=== PATIENT | female | born 1970 | race Caucasian/White ===

== ENCOUNTER 2023-12-16 23:59 | Emergency (ER) | payer BC, SELFPAY ==
[2023-12-17] VITALS (18 sets, daily range): BP systolic 125–181; BP diastolic 71–87; PULSE 60–76; RESP 12–24; TEMP 36.4–37.1; O2SAT 95–100
--- NOTE | 2023-12-17 02:36 | ED.GENADULT ---
HPI - General Adult General Chief complaint: Unspecified Stated complaint: My blood pressure is 170/100 Time Seen by Provider: 12/17/23 01:21 History of Present Illness HPI narrative: This is a 53-year-old female who is 3 weeks for having a cancerous thyroid nodule removed here for multiple complaints. the patient has been healthy until her thyroid cancer diagnosis and now has a significant amount of concerned about her health. Her 1st complaint was her blood pressure. She has been monitoring her blood Pressure every night before bed. It is typically 140/80 but tonight it was 180/90. She called her primary care physician was told to come to the emergency department. She does not have any chest pain difficulty breathing or neurologic deficits. The patient's 2nd complaint is neck stiffness. Since the surgery to her neck she feels that she has been holding head much straighter and having difficulty sleeping at night. The stiffness in her neck has caused her to have a bandlike headache. Additionally she is complaining of intermittent pain pins and needles in a T8 distribution down her left arm. Related Data Home Medications Medication Instructions Recorded Confirmed levothyroxine 125 mcg tablet mcg 12/17/23 Allergies Allergy/AdvReac Type Severity Reaction Status Date / Time No Known Allergies Allergy Verified 12/17/23 00:50 Exam Narrative: APPEARANCE: Patient appears anxious Head: atraumatic. EYES: EOMI, NOSE: Atraumatic NECK: no midline tenderness, tension in the paracervical muscles and trapezius , well-healed scar over the base of neck RESPIRATORY: No increased rate of breathing clear to auscultation CARDIOVASCULAR: RRR, ABDOMINAL: Non-distended MUSCULOSKELETAl: No obvious deformities NEURO: Alert. focal exam of left upper extremity shows intact sensation light touch and motor function. Pulses intact cap refill less than 2 seconds. SKIN:: Warm, dry. Normal color PSYCHIATRIC: anxious Course Vital Signs Vital signs: Vital Signs Temperature 97.6 F 12/17/23 00:00 Pulse Rate 65 12/17/23 00:00 Respiratory Rate 16 12/17/23 00:00 Blood Pressure 181/71 H 12/17/23 00:00 Pulse Oximetry 98 12/17/23 00:00 Oxygen Delivery Room Air 12/17/23 00:00 Temperature 97.6 F 12/17/23 00:00 Pulse Rate 76 12/17/23 02:07 Respiratory Rate 18 12/17/23 02:07 Blood Pressure 140/77 08/18/24 01:46 Pulse Oximetry 97 12/17/23 02:07 Oxygen Delivery Room Air 12/17/23 00:00 Medical Decision Making MDM Narrative Medical decision making narrative: -Course: 53-year-old female presenting with multiple complaints related to her recent surgery. Patient admits that she has a certain amount of health anxiety after her recent diagnosis. Patient has multiple common complaints such as a tension headache and some cervical radiculopathy which are likely related to her recent neck surgery and resulting neck pain. Symptoms were discussed with the patient and she is comfortable following up with her primary care physician. Patient will be given muscle relaxers for her neck tension. -DDX includes but is not limited to: Tension headache, cervical strain, cervical radiculopathy -Co-morbidities complicating care: recent partialthyroidectomy -Interventions: Robaxin -Shared decision making / Disposition: discharge -RX Robaxin Vital Signs Vital Signs: Vital Signs Temperature 97.6 F 12/17/23 00:00 Pulse Rate 65 12/17/23 00:00 Respiratory Rate 16 12/17/23 00:00 Blood Pressure 181/71 H 12/17/23 00:00 Pulse Oximetry 98 12/17/23 00:00 Oxygen Delivery Room Air 12/17/23 00:00 Temperature 97.6 F 12/17/23 00:00 Pulse Rate 76 12/17/23 02:07 Respiratory Rate 18 12/17/23 02:07 Blood Pressure 140/77 12/17/23 01:46 Pulse Oximetry 97 12/17/23 02:07 Oxygen Delivery Room Air 12/17/23 00:00 Discharge Plan Discharge Clinical Impression: Acute tension
== END 2023-12-17 03:13 | disposition home or self-care (01) ==
PROVIDERS: Emergency Provider Emergency Medicine; PCP Nurse Practitioner Family
DX: G44.209 Tension-type headache, unspecified, not intractable (principal); M54.12 Radiculopathy, cervical region; S16.1XXA Strain of muscle, fascia and tendon at neck level, initial encounter; C73 Malignant neoplasm of thyroid gland; X58.XXXA Exposure to other specified factors, initial encounter
CPT/HCPCS: 99284

== ENCOUNTER 2025-02-27 09:11 | Emergency (ER) | payer BC, SELFPAY ==
--- NOTE | ~2025-02-27 | US_ITS ---
EXAMINATION: US venous doppler [facility] DATE: 02/27/2025 10:05 INDICATION: Left lower limb pain TECHNIQUE: Grayscale ultrasound images without and with compression and Doppler ultrasound images of the left lower extremity veins were obtained. COMPARISON: None. FINDINGS: The visualized portions of left common femoral vein, profunda (deep) femoral vein, femoral vein, popliteal vein, peroneal veins, posterior tibial veins, gastrocnemius vein and greater saphenous vein outflow are patent. IMPRESSION: 1. No deep venous thrombosis in the left lower limb. Reviewed, dictated and finalized at location A.
[2025-02-27 09:27] VITALS: BP 157/88; PULSE 66; RESP 16; TEMP 37.1; O2SAT 100
--- OUTSIDE RECORDS SUMMARY | 2025-02-27 09:45 | XMS_ITS | Clinical Summary ---
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 Gender Identity Not on file Sexual Orientation Not on file Plan of Treatment Health Maintenance Due Date Last Done Comments Hepatitis C Virus (HCV) Screening 1970 TdaP Immunization 1969 Hepatitis B Immunization (1 of 3 - 19+ 3-dose series) 1988 Pap Smear 1990 Cervical Cancer Screening (CCS) 1999 HPV/Cotest 1999 Cologuard 2014 Colonoscopy 2014 Colorectal Cancer Screening 2014 Immunochemical Fecal Occult Blood 2014 Pneumococcal Immunization (5 0+ years) (1 of 1 - PCV) 2019 Zoster Immunization (1 of 2) 2019 Influenza Immunization (#1) 2024 04/05/2014 SARS-COV-2 Immunization (2 - season) 2024 07/05/2020 Respiratory Syncytial Virus (RSV) Immunization (Adult) (1 - 1-dose 75+ series) 2044 Human Papillomavirus (HPV) Immunization Aged Out No longer eligible b ased on patient's age to complete this topic Meningococcal Immunization (ACWY) Aged Out No longer eligible based on patient's age to complete this topic Rotavirus Immunization Aged Out No lo nger eligible based on patient's age to complete this topic
--- OUTSIDE RECORDS SUMMARY | 2025-02-27 09:45 | XMS_ITS | Clinical Summary ---
Author Organization [facility] Address [address] [place] [address] Care Team Providers Care Oil Tester Name Role Phone Azalia Wilson MD Primary Care Provider [phone] Source Comments [facility],non-owned Affiliates and Associated Physician Practices is amultiple site organization consisting of ambulatory clinics and hospital sitesin [place], [place], [place] and [place]. This disclosure is being madepursuant to the Care Everywhere program and may not contain all information available regarding this patient. Last updated 18.[facility] Allergies No known active allergies Medications * Be aware that medications may not be up to date on this document. Alwaysverify current medications with the patient. Naproxen Sodium 220 MG Take 1 tablet by mouth. 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 Gender Identity Female 12/21/2022 5:22 PM CDT Sexual Orientation Straight 12/21/2022 5: 22 PM CDT Last Filed Vital Signs Vital Sign Reading Time Taken Comments Blood Pressure 125/73 01/05/2023 10:45 AM CDT Pulse 62 01/05/2023 10:45 AM CDT Temperature 36.6 C (97.8 F) 01/05/2023 10:30 AM CDT Respiratory Rate 11 01/05/2023 10:45 AM CDT Oxygen Saturation 97% 01/05/2023 10:45 AM CDT Inhaled Oxygen Concentration - - Weight 86.2 kg (190 lb) 01/05/2023 8:40 AM CDT Height 172.7 cm (5' 8) 01/05/2023 8:40 AM CDT Body Mass Index 28.89 01/05/2023 8:40 AM CDT Plan of Treatment Health Maintenance Due Date Last Done Comments COLOGUARD (AGES 45-75) - COL ON CA SCREENING 1969 CT COLONOGRAPHY - COLON CA SCREENING 1969 FIT - COLON CA SCREENING 1969 FLEX SIG - COLON CA SCREENING 1969 LIPID TESTING 1969 MAMMOGRAM 1969 HIV SCREENING 1984 HEPATITIS C SCREENING 03/21/1987 DTAP/TDAP/TD VACCINES (1 - Tdap) 1988 HEPATITIS B VACCINE (1 of 3 - 19+ 3-dose series) 1988 PAP SMEAR 1990 PNEUMOCOCCAL VACCINE 50+ (1 of 1 - PCV) 2019 ZOSTER VACCINE (1 of 2) 2019 DEPRESSION SCREENING 05/01/2024 COVID-19 VACCINE (1 - 2023-2 5 season) 2024 INFLUENZA VACCINE (#1) 2024 4, 04/05/2014, 05/01/2012 COLON MONITORING 01/05/2033 01/05/2023, 01/05/2023 COLONOSCOPY - COLON CA SCREENING 01/05/2033 01/05/2023, 01/05/2023 Colorectal Cancer Screening 01/05/2033 HIB VACCINE Aged Out No longer eligi ble based on patient's age to complete this topic HPV VACCINE Aged Out No longer eligi ble based on patient's age to complete this topic MENINGOCOCCAL (Group B) VACCINE SHARED DECISION-MAKING Aged Out No longer eligible based on patient's age to complete this topic MENINGOCOCCAL GROUPS A/C/Y/W VACCINE Aged Out No longer eligible b ased on patient's age to complete this topic Procedures Procedure Name Priority Date/Time Associated Diagnosis Comments ENDOSCOPY, COLON, SCREENING Routine 01/05/2023 9:51 AM CDT from Last 3 Months or Most Recently Relevant to Health Maintenance Results * ENDOSCOPY, COLON, SCREENING (01/05/2023 9:51 AM CDT) Report Endoscopy POC Endoscopy Department Report _ Patient Name: Gabrielle Hayward Procedure Date: 01/05/2023 9:51 AM Date of : 1970 Classification: Outpatient Gender: Female Ethnicity: Not or Race: White _ Providers: Prashant Hitchcock Referring MD: Azalia Wilson (Referring MD) Procedure: Colonoscopy Indications: Screening for colorectal malignant neoplasm Medications: Monitored Anesthesia Care Description of Procedure: After I obtained informed consent, the scope was passed under direct vision. Throughout the procedure, the patient's blood pressure, pulse, and oxygen saturations were monitored continuously. The Colonoscope was introduced through the anus and advanced to the cecum, identified by appendiceal orifice and ileocecal valve. The colonoscopy was performed without difficulty. The patient tolerated the procedure well. The quality of the bowel preparation was good. The ileocecal valve, appendiceal orifice, and rectum were photographed. Findings: Non-bleeding external and internal hemorrhoids were found. The hemorrhoids were large. A 3 mm polyp was found in the hepatic flexure. The polyp was hyperplastic. The polyp was removed with a jumbo cold forceps. Resection and retrieval were complete. Many small and large-mouthed diverticula were found in the entire colon. Estimated Blood Loss: Estimated blood loss: none. Complications: No immediate complications. Impression: - Non-bleeding external and internal hemorrhoids. - One 3 mm polyp at the hepatic flexure, removed with a jumbo cold forceps. Resected and retrieved. - Diverticulosis in the entire examined colon. Recommendation: - Discharge patient to home. - Await pathology results. - Repeat colonoscopy in 10 years for screening purposes. Attending Participation: I personally performed the entire procedure. Procedure Code(s): --- Professional --- 26429, Colonoscopy, flexible; with biopsy, single or multiple Diagnosis Code(s): --- Professional --- Z12.11, Encounter for screening for malignant neoplasm of colon K64.8, Other hemorrhoids D12.3, Benign neoplasm of transverse colon (hepatic flexure or splenic flexure) K57.30, Diverticulosis of large intestine without perforation or abscess without bleeding CPT copyright 2021 [employer]. All rights reserved. The codes documented in this report are preliminary and upon label coder review may be revised to meet current compliance requirements. Prashant Hitchcock, 01/05/2023 10:25:53 AM Note Initiated On: 01/05/2023 9:51 AM Number of Addenda: [address] [id number] [facility] 01/05/2023 9:51 AM CDT us Prashant Hitchcock MD GI PROCEDURE ORDERABLE S Edited Result - Final [facility] from Last 3 Months or Most Recently Relevant to Health [place] [address] [employer] Care Teams Oil Tester Relationship Specialty Start Date End Date Azalia Wilson MD [address] [facility] [address] [place] [address] PCP - General Obstetrics and Gynecology 12/21/22
--- OUTSIDE RECORDS SUMMARY | 2025-02-27 09:45 | XMS_ITS | Encounter Summary ---
Author Organization [facility] Healthcare Address [address] [place] [address] Care Team Providers Care Dump Worker Name Role Phone Azalia Wilson MD Unavailable Marla Aldrich MD Primary Care Provider Encounter Details Date Type Department Care Team (Late st Contact Info) Description 01/13/2025 Results Follow-Up [facility] [address] [place] [address] [place] [phone] Azalia Wilson MD [address] [place] [address] [address] [place] [address] [place] Transvaginal Social History Tobacco Use Types Packs/Day Years Used Date Smoking Tobacco: Former Cigarettes 0.1 4 Smokeless Tobacco: Never Alcohol Use Standard Drinks/Week Comments Yes 3 (1 standard drink = 0.6 oz pur e alcohol) [facility] Utilities Answer Date Recorded In the past 12 months has e Nerv[employer], gas, oil, or water [employer] threatened to shut off services in your home? No 03/07/2024 Humiliation, Afraid, Rape, and Kick questionnair e Answer Date Recorded Within the last year, have y ou been afraid of your partner or ex-partner? No 06/23/2020 Within the last year, have y ou been humiliated or emotionally abused in other ways by your partner or ex-partner? No Within the last year, have y ou been kicked, hit, slapped, or otherwise physically hurt by your partner or ex-partner? No 06/23/2020 Within the last year, have y ou been raped or forced to have any kind of sexual activity by your partner or ex-partner? No 06/23/2020 Social Connection and Isolation Panel Answer Date Recorded In a typical week, how many times do you talk on the phone with family, friends, or neighbors? More than three times a week 03/07/2024 How often do you get togethe r with friends or relatives? More than three times a week 03/07/2024 How often do you attend chur ch or shinto services? Never 03/07/2024 Do you belong to any clubs o r organizations such as holiness groups, unions, fraternal or athletic groups, or school groups? No 03/07/2024 How often do you attend meet ings of the clubs or organizations you belong to? Never 03/07/2024 Are you , , di vorced, , never , or living with a partner? 03/07/2024 AUDIT-C Answer Date Recorded Q1: How often do you have a drink containing alc ohol? 2-4 times a month 11/24/2023 Q2: How many drinks containi ng alcohol do you have on a typical day when you are drinking? 3 or 4 11/24/2023 Q3: How often do you have si x or more drinks on one occasion? Never 11/24/2023 Overall Financial Resource Strain (CARDIA) Answe r Date Recorded How hard is it for you to pa y for the very basics like food, housing, medical care, and heating? Not hard at all 03/07/2024 PHQ-2 Answer Date Recorded PHQ-2 Total Score (If total score is 3 or more points, staff should administer the PHQ-9) 0 09/13/2024 Hunger Vital Sign Answer Date Recorded Within the past 12 months, y ou worried that your food would run out before you got the money to buy more. Never true 03/07/20 24 Within the past 12 months, t he food you bought just didn't last and you didn't have money to get more. Never true 03/07/2024 PRAPARE - Transportation Answer Date Re corded In the past 12 months, has l ack of transportation kept you from medical appointments or from getting medications? No 10/2023 In the past 12 months, has l ack of transportation kept you from meetings, work, or from getting things needed for daily living? No 03/07/2024 Housing Stability Vital Sign Answer Tee e Recorded In the last 12 months, was t here a time when you were not able to pay the mortgage or rent on time? No 03/07/2024 In the past 12 months, how m any times have you moved where you were living? 0 03/07/2024 At any time in the past 12 m [facility], were you homeless or living in a group home (including now)? No 03/07/2024 Personal Safety Answer Date Recorded Have you ever been in or are you currently in a harmful physical or emotional relationship or is someone making you feel afraid or unsafe? 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 Gender Identity Female 04/16/2020 8:10 PM DAY TREATMENT CLINICIAN/ART THERAPIST Sexual Orientation Straight 04/16/2020 8: 10 PM DAY TREATMENT CLINICIAN/ART THERAPIST documented as of this encounter Plan of Treatment Scheduled Procedures Name Priority Associated Diagnoses Date/Ti me LAPAROSCOPIC TOTAL HYSTERECTOMY Abnormal uterine bleeding (AUB) Fibroids CYSTOSCOPY Abnormal uterine bleeding (AUB) Fibroids LAPAROSCOPIC SALPINGO-OOPHORECTOMY Abnormal uterine bleeding (AUB) Fibroids documented as of this encounter Visit Diagnoses Not on filedocumented in this encounter Care Teams Dump Worker Relationship Specialty Start Date End Date Marla Aldrich MD [address] [place] [address] [address] [facility] [address] [place] [address] PCP - General Internal Medicine 09/13/24 Azalia Wilson MD [address] [facility] [address] [place] [address] Consulting Physician Obstetrics and Gynecology 08/03/22 documented as of this encounter
--- OUTSIDE RECORDS SUMMARY | 2025-02-27 09:45 | XMS_ITS | Encounter Summary ---
Author Organization [facility] Healthcare Address [address] [place] [address] Care Team Providers Care Director Of Provider Relations Name Role Phone Azalia Wilson MD Unavailable [phone] Marla Aldrich MD Primary Care Provider Reason for Visit * Reason Onset Date Comments Medical Question/Miscellaneous 02/21/2025 Encounter Details Date Type Department Care Team (Late st Contact Info) Description 02/21/2025 Telephone [facility] at the [address] [place] [address] Marla Aldrich MD [address] [place] [address] [address] [place] [address] Medical Question/Miscellaneous Social History Tobacco Use Types Packs/Day Years Used Date Smoking Tobacco: Former Cigarettes 0.1 4 Smokeless Tobacco: Never Alcohol Use Standard Drinks/Week Comments Yes 3 (1 standard drink = 0.6 oz pur e alcohol) [facility] Utilities Answer Date Recorded In the past 12 months has e electric, gas, oil, or water company threatened to shut off services in your [...] often do you attend chur ch or yazidi services? Never 03/07/2024 Do you belong to any clubs o r organizations such as oriental orthodox groups, unions, fraternal or athletic groups, or [...] any time in the past 12 m [facility], were you homeless or living in a assisted (including now)? No 03/07/2024 Personal Safety Answer Date Recorded Have you ever been in or are you currently in a harmful physical or emotional relationship or is someone making you feel afraid or unsafe? 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 Collection was not enough for testing FYI Please advise further? Does message need to be routed? Yes-Action Needed documented in this encounter Plan of Treatment Scheduled Procedures Name Priority Associated Diagnoses Date/Ti me LAPAROSCOPIC TOTAL HYSTERECTOMY Abnormal uterine bleeding (AUB) Fibroids CYSTOSCOPY Abnormal uterine bleeding (AUB) Fibroids LAPAROSCOPIC SALPINGO-OOPHORECTOMY Abnormal uterine bleeding (AUB) Fibroids documented as of this encounter Visit Diagnoses Not on filedocumented in this encounter Care Teams Director Of Provider Relations Relationship Specialty Start Date End Date Marla Aldrich MD [address] [place] [address] [address] [facility] [address] [place] [address] PCP - General Internal Medicine 09/13/24 Azalia Wilson MD [address] [place] [address] Consulting Physician Obstetrics and Gynecology 08/03/22 documented as of this encounter
--- OUTSIDE RECORDS SUMMARY | 2025-02-27 09:45 | XMS_ITS | Encounter Summary ---
Author Organization [facility] Address [address] [place] [address] Care Team Providers Care Dye Tub Tender Name Role Phone Azalia Wilson MD Primary Care Provider [phone] Encounter Details Date Type Department Care Team (Late st Contact Info) Description 05/24/2024 Lab Requisition [facility] - DermPath Lab [address] [facility] [place] [id number] Mustapha Kurtz MD [address] [address] Social History Tobacco Use Types Packs/Day Years Used Date Smoking Tobacco: Never Alcohol Use Standard Drinks/Week Comments Yes 0 (1 standard drink = 0.6 oz pur e alcohol) Comments No Sex and Gender Information Value Date Recorded Sex Assigned at Female 12/21/2022 5:22 PM CDT Legal Sex Female 5:49 PM BATTERY BUILDER Gender Identity Female 12/21/2022 5:22 PM CDT Sexual Orientation Straight 12/21/2022 5: 22 PM CDT documented as of this encounter Functional Status * Is person deaf or have serious hearing difficulty? Answer Date of Assessment Author No 01/05/2023 10:35 AM CDT Katina Resendiz i, RN * Is person blind or have serious difficulty seeing? Answer Date of Assessment Author No 01/05/2023 10:35 AM GLOT Katina Resendiz i, RN * Does person have serious difficulty walking/climbing stairs? Answer Date of Assessment Author No 01/05/2023 10:35 AM Katina Polanco i, RN * Does person have difficulty dressing/bathing? Answer Date of Assessment Author No 01/05/2023 10:35 AM Katina Polanco i, RN * Does person have difficulty doing errands alone? Answer Date of Assessment Author No 01/05/2023 10:35 AM Katina Polanco i, RN documented as of this encounter Mental Status * Does person have difficulty concentrating/remembering/making decisions? Answer Entry Date Author No 01/05/2023 10:35 AM Katina Polanco i, RN documented in this encounter Plan of Treatment Not on file documented as of this encounter Procedures Procedure Name Priority Date/Time Associated Diagnosis Comments DERMATOPATHOLOGY Routine 05/23/2024 3:33 AM BATTERY BUILDER documented in this encounter Results * DERMATOPATHOLOGY (05/23/2024 3:33 AM BATTERY BUILDER) Case Report Dermatopathology Report Case: [id number] Authorizing Provider: Mustapha Kurtz MD Collected: 05/23/2024 03:33 AM Ordering Location: [facility] - Received: 05/24/2024 11:47 AM DermPath Lab Pathologist: Rani Rosa MD Specimen: Skin, left posterior knee 2:22 PM BATTERY BUILDER DERMATOPATHOLOGY LABORATORY Final Diagnosis Specimen A. 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 The specimen consists of a shave biopsy measuring 8x7x1 mm. Jar 0. 2:22 PM BATTERY BUILDER DERMATOPATHOLOGY LABORATORY Microscopic Description Specimen A. SKIN, left posterior knee: There is acanthosis of the epidermis consisting of uniform cells with pale cytoplasm, a diminished granular layer and overlying parakeratosis with neutrophils. 5 2:22 PM [facility] DERMATOPATHOLOGY LABORATORY Disclaimer An external and internal positive and negative controls are appropriate for the histochemical, immunohistochemical and immunofluorescence stain(s) in this case (if any), except where stated explicitly. The performance characteristics of the stain(s) cited in this report were developed and its performance characteristic determined by the Dermatopathology Laboratory at [facility], directed by Dr. Elmo Lloyd. These tests need not be, and therefore are not, approved by the [place] Food and Drug Administration. The tests are used for clinical purposes. Billing Codes Specimen Charges Stain Charges 52704 1 5 2:22 PM [facility] DERMATOPATHOLOGY LABORATORY Embedded Images 2:22 PM [facility] DERMATOPATHOLOGY LABORATORY Pathology/Cytolo gy TISSUE SPECIMEN FROM SKIN / Unknown 05/23/2024 3:33 AM BATTERY BUILDER 05/24/2024 11:47 AM BATTERY BUILDER Mustapha Kurtz MD LAB - PATHOLOGY/CYTOLOGY OR DERABLES Final Result DERMATOPATHOLOGY LABORATORY [facility] - Department of Dermatology [address], [address] [phone] documented in this encounter Visit Diagnoses Not on filedocumented in this encounter Care Teams Dye Tub Tender Relationship Specialty Start Date End Date Azalia Wilson MD [address] [facility] [address] [place] [address] PCP - General Obstetrics and Gynecology 12/21/22 documented as of this encounter
--- OUTSIDE RECORDS SUMMARY | 2025-02-27 09:45 | XMS_ITS ---
Author Organization [place] [id number] [facility] Address [address] [place] [address] Care Team Providers Care Boat Cleaner Name Role Phone Azalia Wilson MD Unavailable Marla Aldrich MD Primary Care Provider [phone] Active Problems Problem Noted Date Diagnosed Date Abnormal uterine bleeding (AUB) 02/25/2025 Fibroids 02/25/2025 Intramural and subserous leiomyoma of uterus Perimenopausal vasomotor symptoms 12/05/2024 Hormone replacement therapy (HRT) 12/05/2024 Elevated Lp(a) 09/13/2024 Assessment & Plan (09/13/2024 11:29 AM CDT): Extensive shared decision-making regarding benefit and risk of statin in her situation, discussed that overall the benefits of statin outweigh the risk but negative coronary CTA would be reassuring if she were against starting a statin, she wishes to continue to take time to think about it Obesity (BMI 30-39.9) 09/13/2024 Assessment & Plan (09/13/2024 11:29 AM CDT): Chronic, stable BMI Follow-up includes: nutrition counseling, exercise counseling, and education provided. Interested in GLP 1, I recommended that she touch base with her pigment pusher to make sure that her endo would be on board given prior hx papillary carcinoma of thyroid and would be happy to prescribe as long as no contraindication Multiple lung nodules on CT 08/09/2024 Myalgia 07/08/2024 History of thyroidectomy 04/19/2024 Allergic rhinitis 04/08/2024 Fibrocystic disease of breast 04/08/2024 Human papilloma virus infection 04/08/2024 Recurrent major depressive episodes 04/08/2024 Annual physical exam 04/08/2024 Assessment & Plan (04/08/2024 9:24 AM HEATER INSTALLER): -Recommended: Healthy diet. Avoiding junk food/fast food. -30 minutes of exercise most days of the week. Increase to 45 minutes for weight loss. Health Maintenance reviewed - up-to-date. -Influenza vaccine every year Recommend: - Topic Date Due DTaP/Tdap/Td Vaccine (1 - Tdap) Never done -F/u in 1 year for Annual PE or sooner if needed Acute pain of right shoulder 04/08/2024 Assessment & Plan (04/08/2024 9:29 AM HEATER INSTALLER): Still having physical pain post her thyroid surgery. Still going to physical therapy. Will obtain x-ray of her shoulder as she is still having pain into her shoulder Cervicalgia 04/08/2024 Assessment & Plan (06/10/2024 10:23 AM HEATER INSTALLER): Most of her neck symptoms are indeterminate and likely functional. She has globus sensation. A sensation of strangulation. Right neck pain and tightness. Voice seems normal. She reassures me that postop vocal cord check was done and found to be normal. She also scheduled for EGD She continues neck PT Assessment & Plan (04/08/2024 9:28 AM HEATER INSTALLER): Obtain x-ray of neck today to rule out degenerative disc disease causing the pain she is having in her scapula radiating into her shoulder and over into her right side of her neck. Submandibular gland tenderness 04/08/2024 Assessment & Plan (04/08/2024 9:31 AM HEATER INSTALLER): Tender over right submandibular gland, although I do not appreciate any swelling or enlargement. Consider ultrasound, however, she is going to the [facility] in a couple of weeks and will receive an ultrasound of her neck there. We will see what they do and then re-consider an ultrasound of that gland if needed. Generalized headaches 01/24/2024 Assessment & Plan (04/08/2024 9:26 AM HEATER INSTALLER): Most consistent with tension headaches. I gave her Maxalt to try at onset of headaches. She may continue Tylenol and Robaxin as needed. Dysphasia 01/24/2024 Family history of ischemic heart disease 024 Pulmonary hypertension 01/24/2024 Primary hypertension 12/22/2023 Assessment & Plan (02/24/2025 4:05 PM CDT): Chronic poorly controlled she does not want to make any medication changes at this time we will continue to monitor at home and we will discuss further following ambulatory blood pressure monitoring in her next office visit with me in March Assessment & Plan (09/13/2024 11:29 AM CDT): Chronic well-controlled continue amlodipine 5 telmisartan 40 Assessment & Plan (04/08/2024 9:25 AM HEATER INSTALLER): Stable. She does see Cardiology. Continue amlodipine 2.5 mg and telmisartan 40 mg Assessment & Plan (03/19/2024 2:14 PM HEATER INSTALLER): Managed appropriately by cardiology Assessment & Plan (12/26/2023 8:26 PM CDT): Blood pressure is well controlled today. She is doing well on valsartan 40mg daily. She will continue to monitor blood pressure at home and update us if blood pressures elevated above 140/90 on a regular basis. We discussed red flag signs and symptoms for which to go to the ER. We discussed cardiology referral, but patient does has not been having any chest pain, shortness of breath or any other cardiac symptoms. EKG shows NSR. Will defer for now, may consider if she has any other symptoms or concerns. ECG 12 lead Date/Time: 12/26/2023 8:23 PM Performed by: Shira Devine NP Authorized by: Devine, Shira, [employer] Comparison: not compared with previous ECG Previous ECG: no previous ECG available Rhythm: sinus rhythm Rate: normal QRS axis: normal Conduction: conduction normal ST Segments: ST segments normal Clinical impression: normal ECG Comments: Non-specific T wave abnormality Post-surgical hypothyroidism 12/04/2023 Overview (06/10/2024): Assessment & Plan (02/24/2025 4:05 PM CDT): Discussed at length the rationale behind TSH as target for levothyroxine dose monitoring, she will wait for her pigment pusher to respond to her recent query, I advised that I would not take over her levothyroxine doses at this time as a ultimately should be managed by specialist given her history. I advised that she could make an appointment to see her pigment pusher at an earlier time than the currently scheduled follow up. If ultimately her choice is to transition care to a different specialist I can of course maintain medications until that transition takes place. Gabrielle will wait and see what Dr Oswald says regarding her dosage in the meantime Assessment & Plan (12/09/2024 11:46 AM CDT): Continue current dose Assessment & Plan (06/10/2024 10:07 AM HEATER INSTALLER): Continue current dose, TSH 0.8 recently switched to Tirosent < one month ago TSH goal lower normal [ consider suppression pending final Tg and US results] Assessment & Plan (03/19/2024 2:15 PM HEATER INSTALLER): Continue current levothyroxine dose. TSH goal lower normal Assessment & Plan (12/04/2023 10:56 AM CDT): Continue current levothyroxine dose. Will check thyroid function test and adjust levothyroxine dose accordingly. TSH goal lower normal Postprocedural hypoparathyroidism 12/04/2023 Assessment & Plan (12/09/2024 11:49 AM CDT): Recovered Assessment & Plan (03/19/2024 2:15 PM HEATER INSTALLER): Recovered Assessment & Plan (12/04/2023 11:00 AM CDT): Likely mild and transient Will recheck PTH and calcium today to advise on dose and further monitoring when she returns to see surgery in 10 days Papillary carcinoma of thyroid 11/23/2023 Assessment & Plan (12/09/2024 11:47 AM CDT): Stage 1 T1N0Mx papillary thyroid cancer s/p TT 10/[address] [facility] 03/2024 US today remain stable with no concerning lesions reported Biochemical markers remain stable and at goal Plan repeat images in 1 year Assessment & Plan (06/10/2024 10:11 AM HEATER INSTALLER): Stage 1 T1N0Mx papillary thyroid cancer s/p TT 10/2023 Pending final US today Pending tumor markers US at [facility] 03/2024 Discussed with patient plan pending Tg and US from today: If concern for mets LNs , < 1 cm with elevated Tg, will plan MCKEON If no concern for LN or Tg in accepted range ----> follow up Neck US in 6 months If Tg elevated and concerning LN > 1 cm ---> plan FNA Patient scheduled to see Dr. Peres this afternoon, the US report will be finalized before then Assessment & Plan (03/19/2024 2:16 PM HEATER INSTALLER): Stage 1 T1N0Mx papillary thyroid cancer s/p TT 10/2023 Return Jun for neck US and tumor markers Assessment & Plan (12/04/2023 10:59 AM CDT): Stage 1 T1N0Mx papillary thyroid cancer s/p TT 10/2023 Discussed pathology results which are over all low risk MCKEON remain optional given pathology despite isthmus location Discussed pros and cons of MCKEON Discussed checking tumor markers in few weeks and if undetected, can forgoes MCKEON and use in future if need to. If patient prefers MCKEON (she might feel less anxious), then we can assist in arranging. Patient is OK deferring MCKEON Plan TFT and tumor markers Mid Sept Plan Neck US in 6 months Discussed short term and long term acute care registered nurse surveillance Status post endometrial ablation 08/23/2022 Overview (08/23/2022): Amenorrhea since ablation in 2021, now with cyclical pain. Assessment & Plan (04/08/2024 9:26 AM HEATER INSTALLER): Will check FSH and LH to check for postmenopause Assessment & Plan (11/19/2022 11:55 AM CDT): Continued menstrual issues since ablation last year. Pt considering definitive surgical management with hysterectomy. 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 Assessment & Plan (08/23/2022 12:12 PM CDT): Would recommend annual surveillance exam with yearly cytology. Current Treatment and Therapy Plans No current plan information found. Past Treatment and Therapy Plans No past plan information found. Lifetime Dose Tracking * Chemical Lifetime Dose Automatic Entry Manual Entr y DLP 1,330 mGycm 1,330 mGycm 0 mGycm Resolved Problems Problem Noted Date Diagnosed Date Resolved Date Chest pain 07/24/2024 09/13/2024 Increased frequency of urination 04/08/2024 04/08/2024 Altered mental status 03/08/20242023 Altered mental status, unspe cified altered mental status type 03/06/2024 04/08/2024 Dizziness 01/24/2024 04/08/2024 Multiple thyroid nodules 11/20/202312/2023 Goiter 10/06/2023 12/26/2023 Assessment & Plan (10/06/2023 8:44 AM CDT): Thyroid megaly palpated on exam. TSH ordered today. Ultrasound of thyroid. Olfactory hallucination 10/06/2023 12/0 12/2023 Assessment & Plan (10/06/2023 8:49 AM CDT): Refer to ENT Ordered MRI, unsure if will be able to get covered. Rule out thyroid disease 1st. Labs as ordered Dysmenorrhea 08/23/2022 04/08/2024 Assessment & Plan (11/19/2022 11:56 AM CDT): Subjective improvement over past 2 months, pt elects to monitor symptoms and return in 2 months for further discussion of surgery. Screening for colon cancer 07/26/2022 1 06/09/2023 Overview (07/26/2022): Added automatically from request for surgery [id number] Menometrorrhagia 08/24/2021 08/23/2022 Overview (08/24/2021): Added automatically from request for surgery [id number] Abnormal uterine bleeding du e to endometrial polyp 05/26/2020 08/23/2022 Overview (05/26/2020): Added automatically from request for surgery [id number] Fatigue 07/08/2024
--- OUTSIDE RECORDS SUMMARY | 2025-02-27 09:45 | XMS_ITS | Encounter Summary ---
Author Organization [facility] Healthcare Address [address] [place] [address] Care Team Providers Care Estimator Project Manager Name Role Phone Azalia Wilson MD Unavailable Marla Aldrich MD Primary Care Provider Encounter Details Date Type Department Care Team (Late st Contact Info) Description 02/22/2025 Results Follow-Up [facility] Medical Group at the [address] [place] [address] Marla Aldrich MD [address] [place] [address] [address] [place], [place] [id number] Basic metabolic panel, Vitamin D 25 hydroxy, eGFR Social History Tobacco Use Types Packs/Day Years Used Date Smoking Tobacco: Former Cigarettes 0.1 4 Smokeless Tobacco: Never Alcohol Use Standard Drinks/Week Comments Yes 3 (1 standard drink = 0.6 oz pur e alcohol) [facility] Utilities Answer Date Recorded In the past 12 months has [facility] [employer], gas, oil, or water [employer] threatened to shut off services in your [...] often do you attend chur ch or samaritan services? Never 03/07/2024 Do you belong to any clubs o r organizations such as hoahaoism groups, unions, fraternal or athletic groups, or [...] any time in the past 12 m [facility], were you homeless or living in a long term (including now)? No 03/07/2024 Personal Safety Answer Date Recorded Have you ever been in or are you currently in a harmful physical or emotional relationship or is someone making you feel afraid or unsafe? Denies 03/07/2024 Comments No Sex and Gender Information Value Date Recorded Sex Assigned at Not on file Legal Sex Female 10:42 PM GAMB CUTTER Gender Identity Female 04/16/2020 8:10 PM GAMB CUTTER Sexual Orientation Straight 04/16/2020 8: 10 PM GAMB CUTTER documented as of this encounter Miscellaneous Notes * Result Encounter Note - Marla Aldrich MD - 02/22/2025 9:13 AM CDT Your results are normal! documented in this encounter Plan of Treatment Scheduled Procedures Name Priority Associated Diagnoses Date/Ti nj LAPAROSCOPIC TOTAL HYSTERECTOMY Abnormal uterine bleeding (AUB) Fibroids CYSTOSCOPY Abnormal uterine bleeding (AUB) Fibroids LAPAROSCOPIC SALPINGO-OOPHORECTOMY Abnormal uterine bleeding (AUB) Fibroids documented as of this encounter Visit Diagnoses Not on filedocumented in this encounter Care Teams Estimator Project Manager Relationship Specialty Start Date End Date Marla Aldrich MD [facility] [address] [facility] [address] [address] PCP - General Internal Medicine 09/13/24 Azalia Wilson MD [address] [facility] [address] [place] [address] Consulting Physician Obstetrics and Gynecology 08/03/22 documented as of this encounter
--- OUTSIDE RECORDS SUMMARY | 2025-02-27 09:45 | XMS_ITS | Clinical Summary ---
Author Organization [facility] Address [address] [place] [address] Care Team Providers Care Sleeping Bag Filler Name Role Phone Unavailable Primary Care Provider Unavailabl e Social History Tobacco Use Types Packs/Day Years Used Date Smoking Tobacco: Never Assessed Comments Unknown Sex and Gender Information Value Date Recorded Sex Assigned at Female 11/07/2023 4:32 PM CDT Legal Sex Female 4:28 PM CDT Gender Identity Female 11/07/2023 4:32 PM CDT Sexual Orientation Straight 11/07/2023 4: 33 PM CDT Plan of Treatment Health Maintenance Due Date Last Done Comments DTAP/TDAP/TD VACCINES (1 - Tdap) 1988 HEPATITIS B VACCINES (1 of 3 - 19+ 3-dose series) 1988 HPV/Cotest (21-29) 1990 HPV/Cotest (30-65) 1999 COLORECTAL SCREENING 2014 Colorectal Cancer Screening 2014 FIT-DNA Q 3 years 2014 FIT/FOBT Q 1 year 2014 Flex Sig/CT Colonography Q 5 years 2014 ZOSTER VACCINE (1 of 2) 2019 BREAST CANCER SCREENING 08/04/2023 08/04/19 23, 08/03/2022, 08/03/2021, Additional history exists INFLUENZA VACCINE (#1) 2024 04/05/2014, 2012 CERVICAL CANCER SCREENING 07/26/2025 PAP SMEAR 07/26/2025 07/26/2022
--- OUTSIDE RECORDS SUMMARY | 2025-02-27 09:45 | XMS_ITS | Encounter Summary ---
Author Organization [facility] Healthcare Address [address] [place] [address] Care Team Providers Care Ballpoint Pens Assembler Name Role Phone Azalia Wilson MD Unavailable [phone] Marla Aldrich MD Primary Care Provider [phone] Encounter Details Date Type Department Care Team (Latest Contact Info) Description 01/13/2025 Results Follow-Up [facility] Medical Group [facility] [address] [place] [address] [place] [address] Azalia Wilson MD [address] [place] [address] [place] [address] Surgical pathology Social History Tobacco Use Types Packs/Day Years Used Date Smoking Tobacco: Former Cigarettes 0.1 4 Smokeless Tobacco: Never Alcohol Use Standard Drinks/Week Comments Yes 3 (1 standard drink = 0.6 oz pur e alcohol) [facility] Utilities Answer Date Recorded In the past 12 months has e [employer], gas, oil, or water [employer] threatened to shut off services in your [...] often do you attend chur ch or congregation services? Never 03/07/2024 Do you belong to any clubs o r organizations such as moravian groups, unions, fraternal or athletic groups, or [...] any time in the past 12 m [facility], were you homeless or living in a [...] on file Legal Sex Female 10:42 PM DOCTOR OSTEOPATHIC Gender Identity Female 04/16/2020 8:10 PM DOCTOR OSTEOPATHIC Sexual Orientation Straight 04/16/2020 8: 10 PM DOCTOR OSTEOPATHIC documented as of this encounter Plan of Treatment Scheduled Procedures Name Priority Associated Diagnoses Date/Ti me LAPAROSCOPIC TOTAL HYSTERECTOMY Abnormal uterine bleeding (AUB) Fibroids CYSTOSCOPY Abnormal uterine bleeding (AUB) Fibroids LAPAROSCOPIC SALPINGO-OOPHORECTOMY Abnormal uterine bleeding (AUB) Fibroids documented as of this encounter Visit Diagnoses Not on filedocumented in this encounter Care Teams Ballpoint Pens Assembler Relationship Specialty Start Date End Date Marla Aldrich MD [address] [place] [address] [address] [facility] [address] [place] [address] PCP - General Internal Medicine 09/13/24 Azalia Wilson MD [address] [facility] [address] [place] [address] Consulting Physician Obstetrics and Gynecology 08/03/22 documented as of this encounter
--- OUTSIDE RECORDS SUMMARY | 2025-02-27 09:45 | XMS_ITS | Clinical Summary ---
Author Organization [place] [id number] [facility] Address [address] [place] [address] Care Team Providers Care Heel Nail Rasper Name Role Phone Azalia Wilson MD Unavailable Marla Aldrich MD Primary Care Provider Allergies No known active allergies Medications telmisartan (MICARDIS) 40 mg tablet Take 1 tablet (40 mg total) by mouth daily 30 tablet 11 03/05/20 24 2024 Active amLODIPine (NORVASC) 5 mg tablet Take 1 tablet (5 mg total) by mouth daily 30 tablet 11 07/25/19 25 2025 Active cholecalciferol (Vitamin D3) 5,000 unit tablet 07/09/19 25 Active levothyroxine sodium (TIROSINT) 137 mcg capsuleIndication s:Post-surgical hypothyroidism Take 1 capsule (137 mcg total) by mouth splitter head before breakfast 90 capsule 3 02/01/20 25 Active levothyroxine sodium (TIROSINT) 150 mcg capsule Take 1 capsule (150 mcg total) by mouth splitter head before breakfast 90 capsule 3 07/16/19 25 2024 Discontinued(A lternate therapy) estradiol-norethi ndrone 0.5-0.1 mg per tabletIndications :Vasomotor Symptoms associated with Menopause Take 1 tablet by mouth daily 30 tablet 2 12/05/19 25 2024 Discontinued(T herapy completed) escitalopram (LEXAPRO) 5 mg tablet Take 1 tablet (5 mg total) by mouth daily 01/07/20 25 2024 Discontinued traZODone (DESYREL) 50 mg tablet Take 1 tablet (50 mg total) by mouth nightly 01/07/20 25 2024 Discontinued levothyroxine (SYNTHROID) 137 mcg tabletIndications :Post-surgical hypothyroidism Take 1 tablet (137 mcg total) by mouth splitter head before breakfast 90 tablet 3 01/31/20 25 2024 Discontinued(A lternate therapy) Active Problems Problem Noted Date Diagnosed Date [...] recommended that she touch base with her coating supervisor to make sure that her endo would [...] 04/08/2024 Assessment & Plan (04/08/2024 9:24 AM CIVIL GEOTECHNICAL ENGINEER): -Recommended: Healthy diet. Avoiding junk food/fast food. [...] 04/08/2024 Assessment & Plan (04/08/2024 9:29 AM CIVIL GEOTECHNICAL ENGINEER): Still having physical pain post her thyroid surgery. Still going to physical therapy. Will obtain x-ray of her shoulder as she is still having pain into her shoulder Cervicalgia 04/08/2024 Assessment & Plan (06/10/2024 10:23 AM CIVIL GEOTECHNICAL ENGINEER): Most of her neck symptoms are indeterminate and likely functional. She has globus sensation. A sensation of strangulation. Right neck pain and tightness. Voice seems normal. She reassures me that postop vocal cord check was done and found to be normal. She also scheduled for EGD She continues neck PT Assessment & Plan (04/08/2024 9:28 AM CIVIL GEOTECHNICAL ENGINEER): Obtain x-ray of neck today to rule out degenerative disc disease causing the pain she is having in her scapula radiating into her shoulder and over into her right side of her neck. Submandibular gland tenderness 04/08/2024 Assessment & Plan (04/08/2024 9:31 AM CIVIL GEOTECHNICAL ENGINEER): Tender over right submandibular gland, although I do not appreciate any swelling or enlargement. Consider ultrasound, however, she is going to the [facility] in a couple of weeks and will receive an ultrasound of her neck there. We will see what they do and then re-consider an ultrasound of that gland if needed. Generalized headaches 01/24/2024 Assessment & Plan (04/08/2024 9:26 AM CIVIL GEOTECHNICAL ENGINEER): Most consistent with tension headaches. I gave [...] 40 Assessment & Plan (04/08/2024 9:25 AM CIVIL GEOTECHNICAL ENGINEER): Stable. She does see Cardiology. Continue amlodipine 2.5 mg and telmisartan 40 mg Assessment & Plan (03/19/2024 2:14 PM CIVIL GEOTECHNICAL ENGINEER): Managed appropriately by cardiology Assessment & Plan [...] Date/Time: 12/26/2023 8:23 PM Performed by: Shira Deivne NP Authorized by: Shira Devine NP Comparison: not compared with previous ECG Previous [...] dose monitoring, she will wait for her coating supervisor to respond to her recent query, I advised that I would not take over her levothyroxine doses at this time as a ultimately should be managed by specialist given her history. I advised that she could make an appointment to see her coating supervisor at an earlier time than the currently [...] dose Assessment & Plan (06/10/2024 10:07 AM CIVIL GEOTECHNICAL ENGINEER): Continue current dose, TSH 0.8 recently switched to Tirosent < one month ago TSH goal lower normal [ consider suppression pending final Tg and US results] Assessment & Plan (03/19/2024 2:15 PM CIVIL GEOTECHNICAL ENGINEER): Continue current levothyroxine dose. TSH goal lower normal Assessment & Plan (12/04/2023 10:56 AM CDT): Continue current levothyroxine dose. Will check thyroid function test and adjust levothyroxine dose accordingly. TSH goal lower normal Postprocedural hypoparathyroidism 12/04/2023 Assessment & Plan (12/09/2024 11:49 AM CDT): Recovered Assessment & Plan (03/19/2024 2:15 PM CIVIL GEOTECHNICAL ENGINEER): Recovered Assessment & Plan (12/04/2023 11:00 AM CDT): Likely mild and transient Will recheck PTH and calcium today to advise on dose and further monitoring when she returns to see surgery in 10 days Papillary carcinoma of thyroid 11/23/2023 Assessment & Plan (12/09/2024 11:47 AM CDT): Stage 1 T1N0Mx papillary thyroid cancer s/p TT 10/2023 US at [facility] EDWIGE 03/2024 US today remain stable with no concerning lesions reported Biochemical markers remain stable and at goal Plan repeat images in 1 year Assessment & Plan (06/10/2024 10:11 AM CIVIL GEOTECHNICAL ENGINEER): Stage 1 T1N0Mx papillary thyroid cancer s/p TT 10/2023 Pending final US today Pending tumor markers US at [facility] EDWIGE 03/2024 Discussed with patient plan [...] then Assessment & Plan (03/19/2024 2:16 PM CIVIL GEOTECHNICAL ENGINEER): Stage 1 T1N0Mx papillary thyroid cancer s/p [...] in 6 months Discussed short term and ferry terminal agent surveillance Status post endometrial ablation 08/23/2022 Overview (08/23/2022): Amenorrhea since ablation in 2021, now with cyclical pain. Assessment & Plan (04/08/2024 9:26 AM CIVIL GEOTECHNICAL ENGINEER): Will check FSH and LH to check [...] recommend annual surveillance exam with yearly cytology. Resolved Problems Problem Noted Date Diagnosed Date [...] today. Ultrasound of thyroid. Olfactory hallucination 10/06/2023 1212/2023 Assessment & Plan (10/06/2023 8:49 AM CDT): [...] (07/26/2022): Added automatically from request for surgery [id number] Menometrorrhagia 08/24/2021 08/23/2022 Overview (08/24/2021): Added automatically from request for surgery [id number] Abnormal uterine bleeding du e to endometrial polyp 05/26/2020 08/23/2022 Overview (05/26/2020): Added automatically from request for surgery [id number] Fatigue 07/08/2024 Encounters Date Type Department Care Team Description 02/25/2025 2:45 PM CDT Office Visit [facility] Medicine Minimally Invasive Surgery [address] 7th [address] [place] [address] Sophia Kerr MD Fibroids (Primary Dx); Female genital prolapse, unspecified type 02/24/2025 3:00 PM CDT Telemedicine [facility] Medical Group at the [address] [place] [address] Marla Aldrich MD Primary hypertension (Primary Dx); Post-surgical hypothyroidism 02/22/2025 Results Follow-Up [facility] at the [address] [place] [address] Marla Aldrich MD Basic metabolic panel, Vitamin D 25 hydroxy, eGFR 02/21/2025 9:35 AM CDT Lab [address] [address] Vitamin D deficiency; Papillary thyroid carcinoma (HCC); Post-surgical hypothyroidism; Postprocedural hypoparathyroidism 02/21/2025 9:20 AM CDT Lab [address] [address] Hypothyroidism, postablative (Primary Dx) 02/21/2025 Telephone [facility] at the [address] [place] [address] Marla Aldrich MD Medical Question/Miscellaneous 02/19/2025 Orders Only [facility] Endocrinology Metabolism and Lipid [address] 13th [place] [address] [place] [phone] Sakshi Briscoe RN Papillary thyroid carcinoma (HCC) (Primary Dx); Post-surgical hypothyroidism; Postprocedural hypoparathyroidism 02/19/2025 Orders Only [facility] Medical [facility] at the [address] [place] [address] Marla Aldrich MD 02/19/2025 Telephone [facility] Endocrinology Metabolism and Lipid [address] [facility] 13th [place] [address] [place] [phone] Maria T Landers, [facility] 02/19/2025 Telephone [facility] Medical [facility] at the [address] [place] [address] Marla Aldrich MD Medical Question/Miscellaneous 02/19/2025 Orders Only [facility] Medical [facility] at the [address] [place] [address] Marla Aldrich MD Vitamin D deficiency (Primary Dx) 01/29/2025 Orders Only [facility] Medical [facility] at the [address] [place] [address] Marla Aldrich MD 01/22/2025 Telephone [facility] [address] [place] [phone] Yohan Rosa RN 01/13/2025 Results Follow-Up [facility] [address] [place] [phone] Azalia Wilson MD Surgical pathology 01/13/2025 Results Follow-Up [facility] Medical [facility] [address] [place] [address] [place] [phone] Azalia Wilson MD Transvaginal 01/09/2025 8:18 PM CDT - 01/09/2025 11:59 PM CDT Hospital Encounter [place] [address] [place] [address] Abnormal uterine bleeding (AUB) Discharge Disposition: Discharge to home or self care 01/09/2025 2:45 PM CDT Office Visit [facility] [address] [place] [address] [address] [place] [address] Azalia Wilson MD Abnormal uterine bleeding (AUB) (Primary Dx); Status post endometrial ablation; Intramural and subserous leiomyoma of uterus 01/09/2025 2:30 PM CDT Clinical Support [facility] [address] [place] [address] [address] [place] [address] Abnormal uterine bleeding (AUB) (Primary Dx) 12/23/2024 Telephone [facility] at the [address] [place] [address] Marla Aldrich MD Medical Question/Miscellaneous 12/13/2024 Results Follow-Up [facility] Medical Office [address] [place] [phone] Azalia Wilson MD Pap with reflex to High Risk HPV and Genotyping (Cytology Component) 12/09/2024 1:00 PM CDT Office Visit [facility] Floor [address] [place] [address] Juan Daniel Peres MD Papillary carcinoma of thyroid (HCC) (Primary Dx) 12/09/2024 10:20 AM CDT Office Visit [facility] Endocrinology Metabolism and Lipid [address] [facility] [address], [address] [place] [address] Davis Oswald MD Post-surgical hypothyroidism (Primary Dx); Postprocedural hypoparathyroidism; Papillary carcinoma of thyroid (HCC) 12/09/2024 7:59 AM CDT - 12/09/2024 11:59 PM CDT Hospital Encounter [facility] [address] [place] [address] Papillary thyroid carcinoma (HCC) Discharge Disposition: Discharge to home or self care 12/06/2024 Telephone [facility] [address] [place] [address] [address] [place] [address] Yohan Rosa RN Follow-up 12/04/2024 7:41 PM CDT - 12/04/2024 11:59 PM CDT Hospital Encounter [facility] [address] [place] [address] Well woman exam Discharge Disposition: Discharge to home or self care 12/04/2024 2:45 PM CDT Office Visit [facility] [address] [place] [address] [address] [place] [address] Azalia Wilson MD Well woman exam (Primary Dx); Perimenopausal vasomotor symptoms; Status post endometrial ablation; 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; Hormone replacement therapy (HRT); Uterine leiomyoma, unspecified location 12/04/2024 9:25 AM CDT Lab [place] [address] [place] [address] Papillary carcinoma of thyroid (HCC) 12/04/2024 Results Follow-Up [facility] Endocrinology Metabolism and Lipid [address] [facility] [address] [place] [address] Davis Oswald MD TSH, T4, free from Last 3 Months Immunizations Immunization Administration Dates Next Due INFLUENZA [id number] 05/01/2011 Influenza, Quadrivalent, Simin l Culture-based MDCK, Preservative Free, Antibiotic Free, Intramuscular 05/03/2023 Influenza, Trivalent, IM (MDV) 04/05/2014,2012 Influenza, Unspecified 12/22/2023(Deferr ed: Patient Refused),05/04/2023,05/01/2023(Deferre d: Patient Refused),05/01/2022(Deferred: Patient Refused) Surgical History Surgery Date Site/Laterality Comments LAPAROTOMY 05/01/2012 - 04/30/2013 ectopic : failed MTX, laparotomy with right salpingectomy; [place] DILATION AND CURETTAGE OF UTERUS x2 ECTOPIC 05/01/1997 - 04/30/1998 CRYOTHERAPY 05/01/1988 - 04/30/1989 CERVICAL BIOPSY W/ LOOP ELECTRODE EXCISION 05/01/1989 - 04/30/1990 SALPINGECTOMY 05/01/1997 - 04/30/1998 Right COMBINED HYSTEROSCOPY DIAGNOSTIC / D&C 06/03/2020 ? polyp? path: no polyp, but secretory EM HYSTEROSCOPY W/ ENDOMETRIAL ABLATION 09/08/2021 [facility] EM ablatin. 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 PONV (postoperative nausea a nd vomiting) Motion sickness Anemia 07/2019 Depression 08/1998 Thyroid nodule Anxiety 08/1998 Clotting disorder 05/2009 Menstrual problem 05/2009 Fatigue 11/24/2023 Post depression Dental disease Root canals, metal fillings Dizziness Daily light-headedness Headache Daily headaches in temples TMJ dysfunction tightness in jaw, in termittent pain in teeth Cancer (HCC) Thyroid cancer - raymundo gnosed 10/2023 - thyroidectomy 11/24/2023 Hypertension Diagnosed 11/2023 Goiter 10/06/2023 Family History Medical History Relation Name Comments Arthritis Father Andres Cancer Father Andres Heart disease Father Andres Hypertension Father Andres Osteoarthritis Father Andres Prostate cancer Father Andres Thyroid disease Father Andres Breast cancer Maternal Grandmother Alcohol abuse Mother Josie Depression Mother Josie Hypertension Mother Josie Memory loss Mother Josie Miscarriages / Stillbirths Mother Josie Parkinsonism Mother Josie Stroke Mother Josie Colon cancer Mother's Sister 1 Rectal cancer Mother's Sister 2 Nini Ovarian cancer Neg Hx Thrombophilia Neg Hx Uterine cancer Neg Hx Relation Name Status Comments Father Andres Alive prostate cancer Maternal Grandmother Mother Josie Mother's Sister 1 Mother's Sister 2 Nini Social History Tobacco Use Types Packs/Day Years Used Date Smoking Tobacco: Former Cigarettes 0.1 4 Smokeless Tobacco: Never Tobacco Cessation:Counseling Given: Not Answered Alcohol Use Standard Drinks/Week Comments Yes 3 (1 standard drink = 0.6 oz pur e alcohol) [facility] Utilities Answer Date Recorded In the past 12 months has e electric, gas, oil, or water [employer] threatened to shut off services in your [...] 03/07/2024 How often do you attend chur or druze services? Never 03/07/2024 Do you belong to any clubs o r organizations such as catholic groups, unions, fraternal or athletic groups, or [...] any time in the past 12 [facility], were you homeless or living in a chcf (including now)? No 03/07/2024 Personal Safety Answer Date Recorded Have you ever been in or are you currently in a harmful physical or emotional relationship or is someone making you feel afraid or unsafe? Denies 03/07/2024 Comments No Sex and Gender Information Value Date Recorded Sex Assigned at Not on file Legal Sex Female 10:42 PM CIVIL GEOTECHNICAL ENGINEER Gender Identity Female 04/16/2020 8:10 PM CIVIL GEOTECHNICAL ENGINEER Sexual Orientation Straight 04/16/2020 8: 10 PM CIVIL GEOTECHNICAL ENGINEER Obstetrics History Para Term AB IAB SAB Ectopic Multiple Livin g Live Births 5 2 2 Date Outcome GA Total Labor Labor/2nd/3rd Weight Sex Type Anes PTL Tiffanie A1 A5 Name Clin Term Term Last Filed Vital Signs Vital Sign Reading Time Taken Comments Blood Pressure 164/89 02/25/2025 2:45 PM CDT Pulse 73 12/09/2024 12:59 PM CDT Temperature 36.6 C (97.8 F) 12/09/2024 12:59 PM CDT Respiratory Rate 18 12/09/2024 12:59 PM CDT Oxygen Saturation 98% 12/09/2024 12:59 PM CDT Inhaled Oxygen Concentration - - Weight 89.4 kg (197 lb 3.2 oz) 02/25/2025 2:45 P M CDT Height 170.2 cm (5' 7) 02/25/2025 2:45 PM CDT Body Mass Index 30.89 02/25/2025 2:45 PM CDT Plan of Treatment Scheduled Procedures Name Priority Associated Diagnoses Date/Ti me LAPAROSCOPIC TOTAL HYSTERECTOMY Abnormal uterine bleeding (AUB) Fibroids CYSTOSCOPY Abnormal uterine bleeding (AUB) Fibroids LAPAROSCOPIC SALPINGO-OOPHORECTOMY Abnormal uterine bleeding (AUB) Fibroids Health Maintenance Due Date Last Done Comments DTaP/Tdap/Td Vaccine (1 - Tdap) 1980 Zoster Vaccine (1 of 2) 2019 Covid-19 Vaccine (5 - season) 2024 05/03/2023, 04/19/2022, 11/17/2021, Additional history exists Influenza Vaccine (#1) 2024 , 05/03/2023, 04/05/2014, Additional history exists Depression Screening 09/13/2025 09/13/2024, 04/08/2024, 12/22/2023, Additional history exists Breast Cancer Screening-Mammogram 11/18/2025 11/18/2024, 11/08/2023, 08/03/2022, Additional history exists Cervical Cancer Screening 12/04/20252024, 11/15/2023, 11/15/2023, Additional history exists Regular Well Visit/Exam 18-64 12/04/2025 12/04/2024, 04/08/2024, 11/15/2023, Additional history exists Colon Cancer Screening-Colonoscopy 01/05/2033 01/05/2023 Colon Cancer Screening-CT Colonography Discontinued 01/05/2023 Colon Cancer Screening-DNA Stool Discontinued 01/05/2023 Colon Cancer Screening-FIT Discontinued 01/05/2023 Colon Cancer Screening-Sigmoidoscopy Discontinued 01/05/2023 Hepatitis C Screening Completed 10/06/2023, 023 Hepatitis B Screening Completed 10/09/2023 Pneumococcal vaccine <65 Aged Out No longer eligible based on patient's age to complete this topic Procedures Procedure Name Priority Date/Time Associated Diagnosis Comments TSH Routine 02/21/2025 9:39 AM CDT Hypothyroidism, postablative T4, FREE Routine 02/21/2025 9:39 AM CDT Hypothyroidism, postablative EGFR Routine 02/21/2025 9:25 AM CDT Vitamin D deficiency VITAMIN D 25 HYDROXY Routine 02/21/2025 9:25 AM CDT Vitamin D deficiency BASIC METABOLIC PANEL Routine 02/21/2025 9:25 AM CDT Vitamin D deficiency SURGICAL PATHOLOGY Routine 01/09/2025 3: 26 PM CDT Abnormal uterine bleeding (AUB) US TRANSVAGINAL Schedule Routine, Read Routine (OP Routine) 01/09/2025 3:19 PM CDT Abnormal uterine bleeding (AUB) [place] ENDOMETRIAL BX W/WO ENDOCERVIX BX W/O DILAT SPX Routine 01/09/2025 2:45 PM CDT Abnormal uterine bleeding (AUB) Status post endometrial ablation Intramural and subserous leiomyoma of uterus US SOFT TISSUE HEAD NECK Schedule Routine, Read Routine (OP Routine) 12/09/2024 9:15 AM CDT Papillary thyroid carcinoma (HCC) PAP WITH REFLEX TO HIGH RISK HPV Routine 12/04/2024 3:36 PM CDT Well woman exam THINPREP PROCESSING (MOLECULAR COMPONENT) Routine 12/04/2024 1:00 PM CDT Well woman exam REFLEX THYROGLOBULIN, TUMOR MARKER, IA, S Routine 12/04/2024 9:31 AM CDT THYROGLOBULIN REFLEX TO MS OR IA Routine 12/04/2024 9:31 AM CDT Papillary carcinoma of thyroid (HCC) T4, FREE Routine 12/04/2024 9:27 AM CDT Papillary carcinoma of thyroid (HCC) TSH Routine 12/04/2024 9:27 AM CDT Papillary carcinoma of thyroid (HCC) SCREENING MAMMOGRAM BILATERAL W TOR Schedule Routine, Read Routine (OP Routine) 11/18/2024 9:29 AM CDT Screening mammogram, encounter for HEPATITIS C ANTIBODY Routine 10/06/2023 8:37 AM CDT Encounter for hepatitis C screening test for low risk patient COLONOSCOPY Routine 01/05/2023 from Last 3 Months or Most Recently Relevant to Health Maintenance Results * TSH (02/21/2025 9:39 AM CDT) Pathologist [facility] Thyroid Stimulating Hormone 1.12 0.30 - 4.20 mcIUnit/mL Blood Venous blood specimen / Unknown 02/21/2025 9:39 AM CDT 02/21/2025 1:51 PM CDT Davis Oswald MD LAB BLOOD ORDERABLES Final Resu lt Performing Organization Address City/[facility] Co de Phone Number [address] [employer] [place], [place] [id number] * (ABNORMAL) T4, free (02/21/2025 9:39 AM CDT) [facility] Free T4 1.75(H) 0.90 - 1.70 ng/dL Blood Venous blood specimen / Unknown 02/21/2025 9:39 AM CDT 02/21/2025 1:51 PM CDT Davis Oswald MD LAB BLOOD ORDERABLES Final Resu lt [address] [place] [address] * eGFR (02/21/2025 9:25 AM CDT) [facility] eGFR >90 >=60 mL/min/1. 73 m2 Comment: Interpretive Data Reference Interval Normal >/= 90 mL/min/1.73m2 Mildly decreased* 60 - 89 mL/min/1.73m2 Mildly to moderately decreased 45 - 59 mL/min/1.73m2 Moderately to severely decreased 30 - 44 mL/min/1.73m2 Severely decreased 15 - 29 mL/min/1.73m2 Kidney Failure < 15 mL/min/1.73m2 *Relative to young adult level Estimated glomerular filtration rate is determined by the 2020 CKD-EPI equation recommended by the National Kidney Foundation (A Unifying Approach to GFR Estimation: Recommendations of the NKF-ASK Task Force on Reassessing the Inclusion of Race in Diagnosing Kidney Disease, JASN 2020). The CKD-EPI equation should not be used for patients with unstable renal function and has not been validated in children and those over 70. Current interpretive data was last reviewed 2021. Blood 02/21/2025 9:25 AM CDT 02/21/2025 10:38 AM CDT Marla Aldrich MD LAB BLOOD ORDERABLES Final Result Performing Organization Address [facility] Co de Phone Number [address] [place] [address] * Vitamin D 25 hydroxy (02/21/2025 9:25 AM CDT) Pathologist [facility] [place] Vitamin D 25-OH 37.0 30.0 - 80.0 ng/mL Blood 02/21/2025 9:25 AM CDT 02/21/2025 10:38 AM CDT Marla Aldrich MD LAB BLOOD ORDERABLES Final Result Performing Organization Address City/[facility] Co de Phone Number [address] [address] * Basic metabolic panel (02/21/2025 9:25 AM CDT) [facility] Sodium 138 135 - 145 mmol/L Potassium, pl 4.6 3.3 - 4.9 mmol/L [facility] Chloride 104 97 - 110 mmol/L [facility] CO2 25 22 - 32 mmol/L [facility] Anion gap 9 2 - 15 mmol/L [facility] BUN 13 6 - 25 mg/dL [facility] Creatinine 0.76 0.60 - 1.10 mg/dL [facility] Glucose 108 70 - 199 mg/dL [facility] Comment: Interpretive Data Fasting glucose >/= 126 mg/dl is diagnostic for diabetes. Fasting is defined as no caloric intake for at least 8 hours. Fasting glucose between 100 mg/dl to 125 mg/dl is diagnostic of prediabetes. In a patient with classic symptoms of hyperglycemia or hyperglycemic crisis, a random glucose >/= 200 mg/dl is diagnostic for diabetes. In the absence of unequivocal hyperglycemia, results should be confirmed by repeat testing. The classification and Diagnosis of Diabetes Diabetes Care 2021; 46: S19-S40. Current interpretive data was last revised 2022. Calcium 9.4 8.5 - 10.3 mg/dL [facility] Blood 02/21/2025 9:25 AM CDT 02/21/2025 10:38 AM CDT us Marla Aldrich MD LAB BLOOD ORDERABLES Final Result Performing Organization Address City/State/[facility] Co de Phone Number [place] [phone] [facility] [place] [address] * Surgical pathology (01/09/2025 3:26 PM CDT) Tissue (Endometrial biopsy) 01/09/2025 3:26 PM CDT 01/10/2025 7:26 AM CDT Narrative PATHOLOGY [facility] - 01/13/2025 11:44 AM CDT [address] [address] Tele: Estrella Sosa MD - Acid Correction Hand Note to Patients: This report may contain a detailed description of human tissue sent by a health care provider to the laboratory for pathologic evaluation. The content of this report is essential for diagnosis and may provide important critical findings. This information may be unfamiliar to patients to review without a medical professional present. It is advised that the patient review this report in the presence of a health care provider who can answer questions and explain the details. SURGICAL PATHOLOGY REPORT Patient Name: RADHA GABRIELLE D. Address: [address] [place] [address] , [place] [address] Gender: F : 1970 (Age: 54) Service: Location: , Hospital #: [id number] Patient Type: MBC SPECIMEN Taken: 01/09/2025 Received 01/10/2025 Reported: 01/13/2025 Physician(s): Azalia Wilson M.D. DIAGNOSIS: Endometrium, biopsy: - Scant fragments of endometrial tissue with features of breakdown rera/01/13/2025 11:44 Examining Pathologist: Latoya Black M.D. Report Reviewed and Electronically Signed By Latoya Black M.D. SPECIMEN TYPE: A: EMB CLINICAL IMPRESSION AND HISTORY: Abnormal uterine bleeding GROSS DESCRIPTION: Received in formalin labeled GABRIELLE HOLDERER and EMB are multiple red-brown tissue fragments, 2 x 1.5 x 0.3 cm in aggregate. The specimen is filtered and entirely submitted in A1. jxi/01/10/2025 08:55 ,JXI MICROSCOPIC DESCRIPTION: Microscopic examination supports the above captioned diagnosis. Negative for hyperplasia and carcinoma in the tissue present for evaluation. Additionally, there are fragments of endocervical glands and squamous mucosa with no significant histopathologic abnormality. Clerical Data Follows A; [id number] REPORT IMAGES AND/OR SCANNED DOCUMENTS ONLY VIEWABLE IN PDF FORMAT The immunohistochemical test(s) cited in this report, if any, was developed and its performance characteristics determined by [facility] Pathology Department. It has not been cleared or approved by the U.S. Food and Drug Administration. The FDA has determined that such clearance or approval is not necessary. This test is used for clinical purposes. It should not be regarded as investigational or for research. [facility] Laboratory is certified under the Clinical Laboratory Improvement Amendments of 1988 (CLIA) as qualified to perform high complexity testing. Immunostains were performed on formalin-fixed paraffin embedded tissue using a polymer diaminobenzidine chromogen detection system. Antibodies used may include clone SP1 (rabbit monoclonal, estrogen receptor), clone 1E2 (rabbit monoclonal progesterone receptor), Ki-67 (rabbit monoclonal, 30-9), CD117 (rabbit polyclonal, c-kit), and anti-Her-2/heri (4B5) (rabbit monoclonal primary antibody). In the event that immunohistochemistry or special stains have been performed, attending physician has confirmed appropriateness of controls. Frozen section, operating room consultation, gross examination and dissection, and case sign out may have been performed in part or completely in the following laboratories: [facility], [address] [facility], [place] [address] [facility], [address] [facility], [place] [address]. us Azalia Wilson MD LAB PATHOLOGY ORDERABLES Ghada beckie Result PATHOLOGY [facility] Laboratory Receiving [facility] [place] [address] * US Transvaginal (01/09/2025 3:19 PM CDT) Anatomical Region Laterality Modality Pelvis N/A Ultrasound Narrative 01/09/2025 2:16 PM CDT FURNITURE BUILDER ultrasound for AUB Anteverted myomatous uterus Multiple fibroids seen, 5 measured; 2 Anterior subserous 2.6 cm, 2.4cm. Fundal subserous 2.8 cm. 2 Posterior subserous 3.0 cm, 3.3 cm Endometrium appears cystic, measures 13.5 mm Bilat ovaries seen. RO WNL. Possible small LO paraovarian cyst seen No FF us Azalia Wilson MD IMG US PROCEDURES Edited Resu lt - Final * KY ENDOMETRIAL BX W/WO ENDOCERVIX BX W/O DILAT SPX (01/09/2025 2:45 PM CDT) Narrative Azalia Wilson MD - 01/09/2025 2:45 PM CDT Azalia Wilson MD 01/14/2025 10:44 AM Endometrial Biopsy Only Performed by: Azalia Wilson MD Authorized by: Azalia Wilson MD Consent Given by: Patient Timeout: prior to procedure the correct patient, procedure, and site was verified Verbal consent obtained: Yes Written consent obtained: Yes Risks, alternatives, and patient questions discussed: Yes Preparation: Patient was prepped and draped in usual sterile fashion Indication: Indications: Other disorder of menstruation and other abnormal bleeding from female genital tract Procedure: Procedure: endometrial biopsy with Pipelle A bivalve speculum was placed in the vagina: yes Cervix cleaned and prepped: yes The cervix was dilated: no Specimen collected: specimen collected and sent to pathology Patient tolerance: Patient tolerated the procedure well with no immediate complications Comments: Procedure comments: Uncomplicated EMB. Follow up surgical pathology. us Azalia Wilson MD IN CLINIC/BEDSIDE ORDERABLES Final Result * US Head Neck Soft Tissue (12/09/2024 9:15 AM CDT) Anatomical Region Laterality Modality Head and Neck N/A Ultrasound 12/09/2024 9:19 AM CDT Impressions 12/09/2024 10:15 AM CDT 1. No evidence of tumor recurrence or suspicious cervical lymph nodes. Dictated by: Krzysztof Alfaro M.D. The radiology attending physician has personally reviewed this study, and had reviewed and/or edited this written report and agrees with it. Electronically signed by: Marciano Grey M.D. Narrative 12/09/2024 10:15 AM CDT EXAMINATION: POST THYROIDECTOMY SONOGRAM HISTORY: Papillary thyroid carcinoma status post thyroidectomy on 11/24/2023. Most recent thyroglobulin measured 0.4 ng/mL. COMPARISON: Ultrasound, 06/10/2024. FINDINGS: There are postoperative changes of thyroidectomy. Minimal residual thyroid tissue noted in the left thyroidectomy bed. There is no evidence of tumor recurrence in the thyroid bed. There are no suspicious cervical lymph nodes. Previously described right level 3 lymph node is not clearly visualized on this study, however benign-appearing lymph nodes are noted in the central and lateral compartments of the neck. Procedure Note Marciano Grey MD PhD - 12/09/2024 EXAMINATION: POST THYROIDECTOMY SONOGRAM HISTORY: Papillary thyroid carcinoma status post thyroidectomy on 11/24/2023. Most recent thyroglobulin measured 0.4 ng/mL. COMPARISON: Ultrasound, 06/10/2024. FINDINGS: There are postoperative changes of thyroidectomy. Minimal residual thyroid tissue noted in the left thyroidectomy bed. There is no evidence of tumor recurrence in the thyroid bed. There are no suspicious cervical lymph nodes. Previously described right level 3 lymph node is not clearly visualized on this study, however benign-appearing lymph nodes are noted in the central and lateral compartments of the neck. IMPRESSION: 1. No evidence of tumor recurrence or suspicious cervical lymph nodes. Dictated by: Krzysztof Alfaro M.D. The radiology attending physician has personally reviewed this study, and had reviewed and/or edited this written report and agrees with it. Electronically signed by: Marciano Grey M.D. us Davis Oswald MD IMG US PROCEDURES Final Result * Pap with reflex to High Risk HPV and Genotyping (Cytology Component) (12/04/2024 3:36 PM CDT) Endocervical (Pap test) 12/04/2024 3:36 PM CDT 12/05/2024 8:51 AM CDT Narrative PATHOLOGY [facility] - 12/13/2024 9:11 AM CDT EPIC results best viewed via link to PDF [address] [address] Tele: Estrella Sosa MD - Acid Correction Hand CYTOLOGY REPORT Note to Patients: This report may contain a detailed description of human tissue sent by a health care provider to the laboratory for pathologic evaluation. The content of this report is essential for diagnosis and may provide important critical findings. This information may be unfamiliar to patients to review without a medical professional present. It is advised that the patient review this report in the presence of a health care provider who can answer questions and explain the details. Patient Name: GABRIELLE HAYWARD Address: [address] [place] [address] Gender: F : 1970 (Age: 54) Service: Location: [facility] #: [id number] Patient Type: [facility] SPECIMEN Taken: 12/04/2024 Reported: 12/13/2024 Physician(s): Azalia Wilson M.D. FINAL DIAGNOSIS: SOURCE OF SPECIMEN - ThinPrep Pap w/ reflex HPV: STATEMENT OF ADEQUACY Source: Cervical/Endocervical - Satisfactory for interpretation - Endocervical /Transformation Zone component present - Case screened using computer assisted imaging technology and manually re- screened by a director learning services. GENERAL CATEGORIZATION: - Negative for intraepithelial lesion or malignancy INTERPRETATION: Due to scant cellularity, the specimen was reprocessed and a second slide was made for evaluation. HPV testing, if applicable, is no longer able to be performed on the specimen due to interfering chemical additives. Recollection would be required. 12/13/2024 09:11Cmaria ines Jay M.S., TATI (ASCP) Report Reviewed and Electronically Signed By Amanda Jay M.S., TATI (ASCP)Clerical Data Follow A; G0145 REPORT IMAGES AND/OR SCANNED DOCUMENTS ONLY VIEWABLE IN PDF FORMAT The Pap test is a screening test used to aid in the detection of cervical cancer and its precursors. It should not be the sole means by which malignant and premalignant lesions are diagnosed. Both false negative and false positive results may occur. It also has poor sensitivity for the detection of endometrial lesions and should not be used to evaluate suspected endometrial abnormalities. For these reasons it is most important to obtain Pap tests at regular intervals, as recommended by your physician or nurse practitioner. Frozen section, operating room consultation, gross examination and dissection, and case sign out may have been performed in part or completely in the following laboratories: [facility], [address] [place] [address], [address] [place] [address]. Azalia Wilson MD LAB CYTOLOGY ORDERABLES Final Result PATHOLOGY [facility] Laboratory Receiving [address] [place] [address] * ThinPrep processing (Molecular component) (12/04/2024 1:00 PM CDT) ThinPrep processing (Molecular component) Specimen received for processing. Endocervical 12/04/2024 1:00 PM CDT 12/04/2024 8:44 PM CDT Azalia Wilson MD LAB BODY FLUIDS AND STOOLS OR DERABLES Final Result Performing Organization Address [facility] Co de Phone Number CANELO [facility] [address] [place] [address] * Reflex thyroglobulin, tumor marker, IA, S (12/04/2024 9:31 AM CDT) Thyroglobulin, Tumor Marker 0.4 < or = 33 ng/mL [facility] Thyroglobulin interp See Footnote CANELO [place] Comment: Thyroglobulin (Tg) reference intervals are for patients with an intact thyroid and not for patients who have had surgery for thyroid cancer. Tg reference intervals in patients that have undergone thyroidectomy or any treatment for follicular thyroid cancer are dependent on the residual mass of the thyroid tissue after surgery. Tg results, regardless of concentration, should not be interpreted as absolute evidence for the presence or absence of papillary or follicular thyroid cancer. This result needs to be interpreted in the context of the clinical evaluation. ADDITIONAL INFORMATION PLEASE NOTE: The given cutoff of <1.8 IU/mL is for the detection of potential thyroglobulin antibody (TgAb) interference in thyroglobulin immunoassays. A thyroglobulin antibody (TgAb) reference cutoff of <4.0 IU/mL may be more suitable for the evaluation of autoimmune thyroiditis. The thyroglobulin and thyroglobulin antibody testing methods are immunoenzymatic assays manufactured by [employer] and performed on the [employer] DXI 800. Values obtained from different assay methods or kits may be different and cannot be used interchangeably. The results cannot be interpreted as absolute evidence for the presence or absence of malignant disease. Test Performed by: [facility] [place] [id number] [place] [address] Ruffling [employer]mer Automatic: Alejandro Banuelos Ph.D.; CLIA# [id number] Blood 12/04/2024 9:31 AM CDT 12/04/2024 11:30 AM CDT us Davis Oswald MD LAB BLOOD ORDERABLES Final Resu lt Performing Organization Address City/[facility]/ZIP Co de Phone Number CER[address] [place] [address] [facility] * Thyroglobulin reflex to MS or IA (12/04/2024 9:31 AM CDT) Anti-thyroglobulin <1.8 <1.8 IUnits/mL [facility] Comment: Thyroglobulin Antibody < 1.8 IU/mL. Thyroglobulin performed by Immunoassay to follow. Test Performed by: [facility] [address] [place] [address] Ruffling Hemmer Automatic: Alejandro Banuelos Ph.D.; CLIA# [id number] Blood 12/04/2024 9:31 AM CDT 12/04/2024 11:30 AM CDT us Davis Oswald MD LAB BLOOD ORDERABLES Final Resu lt Performing Organization Address [facility] Co de Phone Number CANELO [address] [place] [address] [facility] * TSH (12/04/2024 9:27 AM CDT) Thyroid Stimulating Hormone 0.42 0.30 - 4.20 mcIUnit/mL Blood 12/04/2024 9:27 AM CDT 12/04/2024 11:30 AM CDT us Davis Oswald MD LAB BLOOD ORDERABLES Final Resu lt [address]UN[address] [place] [address] * (ABNORMAL) T4, free (12/04/2024 9:27 AM CDT) Free T4 1.84(H) 0.90 - 1.70 ng/dL Blood 12/04/2024 9:27 AM CDT 12/04/2024 11:30 AM CDT us Davis Oswald MD LAB BLOOD ORDERABLES Final Resu lt CANELO [address] [facility] [place] [address] * Screening Mammogram Bilateral W Tor (11/18/2024 9:29 AM CDT) Anatomical Region Laterality Modality Breast Bilateral Mammography Impressions 11/20/2024 10:49 AM CDT Bilateral No evidence of malignancy in either breast. OVERALL BI-RADS FINAL ASSESSMENT: 1 - Negative RECOMMENDATION: Recommend bilateral annual screening mammography. Narrative 11/20/2024 10:49 AM CDT EXAMINATION: Screening Mammogram Bilateral W Tor: 11/18/2024 COMPARISON: Relevant prior studies available at the time of interpretation were reviewed, including the most recent mammogram on: 11/08/2023. TECHNIQUE: Mammography was performed with 2D and digital breast tomosynthesis (DBT) images. CAD was utilized. BREAST PARENCHYMAL COMPOSITION: There are scattered areas of fibroglandular density. FINDINGS: Bilateral There is no suspicious mass, calcification, or architectural distortion in either breast. Self Screening Mammogram IMG MAMMO PROCEDURES Fi nal Result * Hepatitis C antibody Blood (10/06/2023 8:37 AM CDT) Hep C Ab Nonreactive Nonreactive Comment: Interpretive Data Nonreactive: Antibodies to HCV not detected. Does NOT exclude the possibility of recent exposure to HCV. Equivocal: Equivocal for HCV antibodies. Supplemental molecular testing will be automatically performed to determine infection status in accordance with current CDC screening recommendations. Reactive: Positive for HCV antibodies. This may represent current or past HCV infection. Supplemental molecular testing will be automatically performed to determine current infection status in accordance with current CDC screening recommendations. Interpretive data was last revised on 2019. Blood 10/06/2023 8:37 AM CDT 10/06/2023 4:11 PM CDT Shira Devine NP LAB MICROBIOLOGY - GENERAL OR DERABLES Final Result Performing Organization Address City/[facility]/ZIP Co de Phone Number CANELO [address] [address] Department [place] [address] * Colonoscopy (01/05/2023) Anatomical Region Laterality Modality Other us Historical Provider ENDOSCOPY PROCEDURES Ghada beckie Result from Last 3 Months or Most Recently Relevant to [place] [address] [place] [address] [place] [address] [address] [place] [address] [place] [address] [address] [place] [address] [employer] Advance Directives For more information, please contact: [phone] * Full Code (Latest Code Status on File) Date Activated Date Inactivated Comments 03/07/2024 7:22 AM 03/08/2024 5:14 PM * Full Code Date Activated Date Inactivated Comments 03/07/2024 6:34 AM 03/07/2024 7:22 AM * Full Code Date Activated Date Inactivated Comments 11/24/2023 9:05 PM 11/25/2023 5:00 PM Care Teams Heel Nail Rasper Relationship Specialty Start Date End Date Marla Aldrich MD [address] [place] [address] [address] [place] [address] PCP - General Internal Medicine 09/13/24 Azalia Wilson MD [address] [place] [address] Consulting Physician Obstetrics and Gynecology 08/03/22
--- OUTSIDE RECORDS SUMMARY | 2025-02-27 09:46 | XMS_ITS | Encounter Summary ---
Author Organization [facility] Healthcare Address [address] [place] [address] Care Team Providers Care Wet Crown Blocking Operator Name Role Phone Azalia Wilson MD Unavailable Marla Aldrich MD Primary Care Provider Encounter Details Date Type Department Care Team (Late st Contact Info) Description 01/29/2025 Orders Only [facility] Medical Group at the [address] [place] [address] Marla Aldrich MD [address] [place] [address] [address] [place] [address] Social History Tobacco Use Types Packs/Day Years Used Date Smoking Tobacco: Former Cigarettes 0.1 4 Smokeless Tobacco: Never Alcohol Use Standard Drinks/Week Comments Yes 3 (1 standard drink = 0.6 oz pur e alcohol) [facility] Utilities Answer Date Recorded In the past 12 months has e Imag[employer], gas, oil, or water [employer] threatened to shut off services in your [...] often do you attend chur ch or baptist services? Never 03/07/2024 Do you belong to any clubs o r organizations such as alevism groups, unions, fraternal or athletic groups, or [...] any time in the past 12 m [facility], were you homeless or living in a residential (including now)? No 03/07/2024 Personal Safety Answer Date Recorded Have you ever been in or are you currently in a harmful physical or emotional relationship or is someone making you feel afraid or unsafe? Denies 03/07/2024 Comments No Sex and Gender Information Value Date Recorded Sex Assigned at Not on file Legal Sex Female 10:42 PM TAX ACCOUNTING MANAGER Gender Identity Female 04/16/2020 8:10 PM TAX ACCOUNTING MANAGER Sexual Orientation Straight 04/16/2020 8: 10 PM TAX ACCOUNTING MANAGER documented as of this encounter Plan of Treatment Scheduled Procedures Name Priority Associated Diagnoses Date/Ti me LAPAROSCOPIC TOTAL HYSTERECTOMY Abnormal uterine bleeding (AUB) Fibroids CYSTOSCOPY Abnormal uterine bleeding (AUB) Fibroids LAPAROSCOPIC SALPINGO-OOPHORECTOMY Abnormal uterine bleeding (AUB) Fibroids documented as of this encounter Visit Diagnoses Not on filedocumented in this encounter Care Teams Wet Crown Blocking Operator Relationship Specialty Start Date End Date Marla Aldrich MD [address] [place] [address] DR Gomez [facility] [address] [place] [address] PCP - General Internal Medicine 09/13/24 Azalia Wilson MD [address] [facility] [address] [place] [address] Consulting Physician Obstetrics and Gynecology 08/03/22 documented as of this encounter
--- OUTSIDE RECORDS SUMMARY | 2025-02-27 09:46 | XMS_ITS | Encounter Summary ---
Author Organization [facility] Healthcare Address [address] [place] [address] Care Team Providers Care Shoe Reconditioner Name Role Phone Azalia Wilson MD Unavailable Marla Aldrich MD Primary Care Provider Reason for Visit * Reason Onset Date Comments Medical Question/Miscellaneous 02/19/2025 Encounter Details Date Type Department Care Team (Late st Contact Info) Description 02/19/2025 Telephone [facility] Medical Group at the [address] [place] [address] Marla Aldrich MD [address] [place] [address] [address] [place] [address] Medical Question/Miscellaneous Social History Tobacco Use Types Packs/Day Years Used Date Smoking Tobacco: Former Cigarettes 0.1 4 Smokeless Tobacco: Never Alcohol Use Standard Drinks/Week Comments Yes 3 (1 standard drink = 0.6 oz pur e alcohol) [facility] Utilities Answer Date Recorded In the [...] often do you attend chur ch or roman catholic services? Never 03/07/2024 Do you belong to any clubs o r organizations such as scientology groups, unions, fraternal or athletic groups, or [...] any time in the past 12 m [facility], were you homeless or living in a skilled nursing (including now)? No 03/07/2024 Personal Safety Answer Date Recorded Have you ever been in or are you currently in a harmful physical or emotional relationship or is someone making you feel afraid or unsafe? Denies 03/07/2024 Comments No Sex and Gender Information Value Date Recorded Sex Assigned at Not on file Legal Sex Female 10:42 PM MEDICAL LAB TECHNICIAN Gender Identity Female 04/16/2020 8:10 PM MEDICAL LAB TECHNICIAN Sexual Orientation Straight 04/16/2020 8: 10 PM MEDICAL LAB TECHNICIAN documented as of this encounter Miscellaneous Notes * Telephone Encounter - Columba Cope - 02/19/2025 12:40 PM CDT Medical Question/Miscellaneous Caller???s Concern: Patient is calling asking to confirm that her standing lab orders for [facility] in [place] are ordered through [facility] as she stated this is how her Endo stated it needsto be ordered. PERSONNEL PSYCHOLOGIST let patient know that the standing orders are there but is asking for confirmation that [facility] in [place] through [facility] will be able to pull those standing orders up. Please call patient to confirm. Does message need to be routed? Yes-Action Needed documented in this encounter Plan of Treatment Scheduled Procedures Name Priority Associated Diagnoses Date/Ti me LAPAROSCOPIC TOTAL HYSTERECTOMY Abnormal uterine bleeding (AUB) Fibroids CYSTOSCOPY Abnormal uterine bleeding (AUB) Fibroids LAPAROSCOPIC SALPINGO-OOPHORECTOMY Abnormal uterine bleeding (AUB) Fibroids documented as of this encounter Visit Diagnoses Not on filedocumented in this encounter Care Teams Shoe Reconditioner Relationship Specialty Start Date End Date Marla Aldrich MD [facility] [address] Gomez [facility] [address] [place] [address] PCP - General Internal Medicine 09/13/24 Azalia Wilson MD [address] [facility] [address] [place] [address] Consulting Physician Obstetrics and Gynecology 08/03/22 documented as of this encounter
--- OUTSIDE RECORDS SUMMARY | 2025-02-27 10:18 | XMS_ITS | Clinical Summary ---
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
--- OUTSIDE RECORDS SUMMARY | 2025-02-27 10:19 | XMS_ITS | Clinical Summary ---
Author Organization [place] [id number] [facility] Address [address] [place] [address] Care Team Providers Care Service Worker Name Role Phone Azalia Wilson MD Unavailable [phone] Marla Aldrich MD Primary Care Provider Allergies [...] 1 capsule (137 mcg total) by mouth underground miner before breakfast 90 capsule 3 02/01/20 25 Active levothyroxine sodium (TIROSINT) 150 mcg capsule Take 1 capsule (150 mcg total) by mouth underground miner before breakfast 90 capsule 3 07/16/19 25 [...] 1 tablet (137 mcg total) by mouth underground miner before breakfast 90 tablet 3 01/31/20 25 [...] recommended that she touch base with her cheese wrapper to make sure that her endo would [...] 04/08/2024 Assessment & Plan (04/08/2024 9:24 AM CAMPUS RECEPTIONIST): -Recommended: Healthy diet. Avoiding junk food/fast food. [...] 04/08/2024 Assessment & Plan (04/08/2024 9:29 AM CAMPUS RECEPTIONIST): Still having physical pain post her thyroid surgery. Still going to physical therapy. Will obtain x-ray of her shoulder as she is still having pain into her shoulder Cervicalgia 04/08/2024 Assessment & Plan (06/10/2024 10:23 AM CAMPUS RECEPTIONIST): Most of her neck symptoms are indeterminate and likely functional. She has globus sensation. A sensation of strangulation. Right neck pain and tightness. Voice seems normal. She reassures me that postop vocal cord check was done and found to be normal. She also scheduled for EGD She continues neck PT Assessment & Plan (04/08/2024 9:28 AM CAMPUS RECEPTIONIST): Obtain x-ray of neck today to rule out degenerative disc disease causing the pain she is having in her scapula radiating into her shoulder and over into her right side of her neck. Submandibular gland tenderness 04/08/2024 Assessment & Plan (04/08/2024 9:31 AM CAMPUS RECEPTIONIST): Tender over right submandibular gland, although I do not appreciate any swelling or enlargement. Consider ultrasound, however, she is going to the [facility] in a couple of weeks and will receive an ultrasound of her neck there. We will see what they do and then re-consider an ultrasound of that gland if needed. Generalized headaches 01/24/2024 Assessment & Plan (04/08/2024 9:26 AM CAMPUS RECEPTIONIST): Most consistent with tension headaches. I gave [...] 40 Assessment & Plan (04/08/2024 9:25 AM CAMPUS RECEPTIONIST): Stable. She does see Cardiology. Continue amlodipine 2.5 mg and telmisartan 40 mg Assessment & Plan (03/19/2024 2:14 PM CAMPUS RECEPTIONIST): Managed appropriately by cardiology Assessment & Plan [...] Performed by: Shira Devine NP Authorized by: Shira Devine NP Comparison: [...] dose monitoring, she will wait for her cheese wrapper to respond to her recent query, I advised that I would not take over her levothyroxine doses at this time as a ultimately should be managed by specialist given her history. I advised that she could make an appointment to see her cheese wrapper at an earlier time than the currently [...] dose Assessment & Plan (06/10/2024 10:07 AM CAMPUS RECEPTIONIST): Continue current dose, TSH 0.8 recently switched to Tirosent < one month ago TSH goal lower normal [ consider suppression pending final Tg and US results] Assessment & Plan (03/19/2024 2:15 PM CAMPUS RECEPTIONIST): Continue current levothyroxine dose. TSH goal lower normal Assessment & Plan (12/04/2023 10:56 AM CDT): Continue current levothyroxine dose. Will check thyroid function test and adjust levothyroxine dose accordingly. TSH goal lower normal Postprocedural hypoparathyroidism 12/04/2023 Assessment & Plan (12/09/2024 11:49 AM CDT): Recovered Assessment & Plan (03/19/2024 2:15 PM CAMPUS RECEPTIONIST): Recovered Assessment & Plan (12/04/2023 11:00 AM CDT): Likely mild and transient Will recheck PTH and calcium today to advise on dose and further monitoring when she returns to see surgery in 10 days Papillary carcinoma of thyroid 11/23/2023 Assessment & Plan (12/09/2024 11:47 AM CDT): Stage 1 T1N0Mx papillary thyroid cancer s/p TT 10/2023 US at [facility] 03/2024 US today remain stable with no concerning lesions reported Biochemical markers remain stable and at goal Plan repeat images in 1 year Assessment & Plan (06/10/2024 10:11 AM CAMPUS RECEPTIONIST): Stage 1 T1N0Mx papillary thyroid cancer s/p TT 10/2023 Pending final US today Pending tumor markers US at [facility] 03/2024 Discussed with patient plan pending [...] then Assessment & Plan (03/19/2024 2:16 PM CAMPUS RECEPTIONIST): Stage 1 T1N0Mx papillary thyroid cancer s/p [...] in 6 months Discussed short term and emt intermediate surveillance Status post endometrial ablation 08/23/2022 Overview (08/23/2022): Amenorrhea since ablation in 2021, now with cyclical pain. Assessment & Plan (04/08/2024 9:26 AM CAMPUS RECEPTIONIST): Will check FSH and LH to check [...] (07/26/2022): Added automatically from request for surgery [id number] Menometrorrhagia 08/24/2021 08/23/2022 Overview (08/24/2021): Added automatically from request for surgery [id number] Abnormal uterine bleeding du e to endometrial polyp 05/26/2020 08/23/2022 Overview (05/26/2020): Added automatically from request for surgery [id number] Fatigue 07/08/2024 Encounters Date Type Department Care Team Description 02/25/2025 2:45 PM CDT Office Visit [facility] Medicine Minimally Invasive Surgery [address] [facility] 7th [address] [place] [address] Sophia Kerr MD Fibroids (Primary Dx); Female genital prolapse, unspecified type 02/24/2025 3:00 PM CDT Telemedicine [facility] Medical Group at the [address] [place] [address] Marla Aldrich MD Primary hypertension (Primary Dx); Post-surgical hypothyroidism 02/22/2025 Results Follow-Up [facility] Medical Group at the [address] [place] [address] Marla Aldrich MD Basic metabolic panel, Vitamin D 25 hydroxy, eGFR 02/21/2025 9:35 AM CDT Lab [address] [address] Vitamin D deficiency; Papillary thyroid carcinoma (HCC); Post-surgical hypothyroidism; Postprocedural hypoparathyroidism 02/21/2025 9:20 AM CDT Lab [address] [address] Hypothyroidism, postablative (Primary Dx) 02/21/2025 Telephone [facility] Medical Group at the [address] [place] [address] Marla Aldrich MD Medical Question/Miscellaneous 02/19/2025 Orders Only [facility] Endocrinology Metabolism and Lipid [address] [facility] 13th [place] [address] [place] [phone] Sakshi Briscoe RN Papillary thyroid carcinoma (HCC) (Primary Dx); Post-surgical hypothyroidism; Postprocedural hypoparathyroidism 02/19/2025 Orders Only [facility] Medical Group at the [address] [place] [address] Marla Aldrich MD 02/19/2025 Telephone [facility] Endocrinology Metabolism and Lipid [address] [facility] 13th [place] [address] [place] [phone] Maria T Landers, [facility] 02/19/2025 Telephone [facility] Medical Group at the [address] [place] [address] Marla Aldrich MD Medical Question/Miscellaneous 02/19/2025 Orders Only [facility] Medical Group at the [address] [place] [address] Marla Aldrich MD Vitamin D deficiency (Primary Dx) 01/29/2025 Orders Only [facility] Medical Group at the [address] [place] [address] Marla Aldrich MD 01/22/2025 Telephone [facility] Medical [facility] [address] [place] [phone] Yohan Rosa RN 01/13/2025 Results Follow-Up [facility] Medical Group [facility] [address] [place] [phone] Azalia Wilson MD Surgical pathology 01/13/2025 Results Follow-Up [facility] Medical [facility] [address] [place] [address] [place] [phone] Azalia Wilson MD Transvaginal 01/09/2025 8:18 PM CDT - 01/09/2025 11:59 PM CDT Hospital Encounter [place] [address] [place] [address] Abnormal uterine bleeding (AUB) Discharge Disposition: Discharge to home or self care 01/09/2025 2:45 PM CDT Office Visit [facility] Medical Group [facility] [address] [place] [address] [address] [place] [address] Azalia Wilson MD Abnormal uterine bleeding (AUB) (Primary Dx); Status post endometrial ablation; Intramural and subserous leiomyoma of uterus 01/09/2025 2:30 PM CDT Clinical Support [facility] Medical Group [facility] [address] [place] [address] [address] [place] [address] Abnormal uterine bleeding (AUB) (Primary Dx) 12/23/2024 Telephone [facility] Medical Group at the [address] [place] [address] Marla Aldrich MD Medical Question/Miscellaneous 12/13/2024 Results Follow-Up [facility] Medical Office [address] [place] [phone] Azalia Wilson MD Pap with reflex to High Risk HPV and Genotyping (Cytology Component) 12/09/2024 1:00 PM CDT Office Visit [facility] Surgery [facility] [facility] Floor [address] [place] [address] Juan Daniel Peres MD Papillary carcinoma of thyroid (HCC) (Primary Dx) 12/09/2024 10:20 AM CDT Office Visit [facility] Endocrinology Metabolism and Lipid [address] [facility] Floor 1, [address] [place] [address] Davis Oswald MD Post-surgical hypothyroidism (Primary Dx); Postprocedural hypoparathyroidism; Papillary carcinoma of thyroid (HCC) 12/09/2024 7:59 AM CDT - 12/09/2024 11:59 PM CDT Hospital Encounter [facility] [address] [place] [address] Papillary thyroid carcinoma (HCC) Discharge Disposition: Discharge to home or self care 12/06/2024 Telephone [facility] Medical Group [facility] [address] [place] [address] [address] [place] [address] Yohan Rosa RN Follow-up 12/04/2024 7:41 PM CDT - 12/04/2024 11:59 PM CDT Hospital Encounter 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 [address], [address] [place] [address] Davis Oswald MD TSH, T4, free from Last 3 Months Immunizations Immunization Administration Dates Next Due INFLUENZA [id number] 05/01/2011 Influenza, Quadrivalent, Simin l Culture-based MDCK, [...] Mother Josie Depression Mother Josie Hypertension Mother Jsoie Memory loss Mother Josie Miscarriages / Stillbirths [...] drink = 0.6 oz pur e alcohol) [facility] Utilities Answer Date Recorded In the past 12 months has e electric, gas, oil, or water [employer] threatened to shut off services in your [...] How often do you attend chur or protestant services? Never 03/07/2024 Do you belong to any clubs o r organizations such as lutheran groups, unions, fraternal or athletic groups, or [...] any time in the past [address] [facility], were you homeless or living in a long-term (including now)? No 03/07/2024 Personal Safety Answer Date Recorded Have you ever been in or are you currently in a harmful physical or emotional relationship or is someone making you feel afraid or unsafe? Denies 03/07/2024 Comments No Sex and Gender Information Value Date Recorded Sex Assigned at Not on file Legal Sex Female 10:42 PM CAMPUS RECEPTIONIST Gender Identity Female 04/16/2020 8:10 PM CAMPUS RECEPTIONIST Sexual Orientation Straight 04/16/2020 8: 10 PM CAMPUS RECEPTIONIST Obstetrics History Para Term AB IAB SAB [...] 3:19 PM CDT Abnormal uterine bleeding (AUB) OR ENDOMETRIAL BX W/WO ENDOCERVIX BX W/O DILAT [...] * TSH (02/21/2025 9:39 AM CDT) Pathologist [facility] Thyroid Stimulating Hormone 1.12 0.30 - 4.20 mcIUnit/mL Blood Venous blood specimen / Unknown 02/21/2025 9:39 AM CDT 02/21/2025 1:51 PM CDT Davis Oswald MD LAB BLOOD ORDERABLES Final Resu lt Performing Organization Address City/[facility] Co de Phone Number [address] [place], [place] [id number] * (ABNORMAL) T4, free (02/21/2025 9:39 AM CDT) [facility] Free T4 1.75(H) 0.90 - 1.70 ng/dL Blood Venous blood specimen / Unknown 02/21/2025 9:39 AM CDT 02/21/2025 1:51 PM CDT Davis Oswald MD LAB BLOOD ORDERABLES Final Resu lt [address] [place] [address] * eGFR (02/21/2025 9:25 AM CDT) [facility] eGFR >90 >=60 mL/min/1. 73 m2 [...] BLOOD ORDERABLES Final Result Performing Organization Address [facility] Co de Phone Number [address] [employer] [address] * Vitamin D 25 hydroxy (02/21/2025 9:25 AM CDT) Pathologist [facility] Vitamin D 25-OH 37.0 30.0 - 80.0 ng/mL Blood 02/21/2025 9:25 AM CDT 02/21/2025 10:38 AM CDT Marla Aldrich MD LAB BLOOD ORDERABLES Final Result Performing Organization Address City/[facility] Co de Phone Number [address] [address] * Basic metabolic panel (02/21/2025 9:25 AM CDT) [facility] Sodium 138 135 - 145 mmol/L Potassium, pl 4.6 3.3 - 4.9 mmol/L [facility] Chloride 104 97 - 110 mmol/L [facility] CO2 25 22 - 32 mmol/L [facility] Anion gap 9 2 - 15 mmol/L [facility] BUN 13 6 - 25 mg/dL [facility] Creatinine 0.76 0.60 - 1.10 mg/dL [facility] Glucose 108 70 - 199 mg/dL [facility] Comment: Interpretive Data Fasting glucose >/= 126 [...] 2022. Calcium 9.4 8.5 - 10.3 mg/dL [facility] Blood 02/21/2025 9:25 AM CDT 02/21/2025 10:38 AM CDT us Marla Aldrich MD LAB BLOOD ORDERABLES Final Result Performing Organization Address City/State/[facility] Co de Phone Number [place] [id number] [facility] Department [place] [address] * Surgical pathology (01/09/2025 3:26 PM CDT) Tissue (Endometrial biopsy) 01/09/2025 3:26 PM CDT 01/10/2025 7:26 AM CDT Narrative PATHOLOGY [facility] - 01/13/2025 11:44 AM CDT [address] [address] Tele: Estrella Sosa MD - Set Up Operator Note to Patients: This report may contain [...] REPORT Patient Name: RADHA GABRIELLE D. Address: [address] [place] [address] , [place] [address] Gender: F : 1970 (Age: 54) Service: Location: , Hospital #: [id number] Patient Type: MBC SPECIMEN Taken: 01/09/2025 Received [...] significant histopathologic abnormality. Clerical Data Follows A; [id number] REPORT IMAGES AND/OR SCANNED DOCUMENTS ONLY VIEWABLE IN PDF FORMAT The immunohistochemical test(s) cited in this report, if any, was developed and its performance characteristics determined by [facility] Pathology Department. It has not been cleared or approved by the U.S. Food and Drug Administration. The FDA has determined that such clearance or approval is not necessary. This test is used for clinical purposes. It should not be regarded as investigational or for research. [facility] Laboratory is certified under the Clinical Laboratory [...] part or completely in the following laboratories: [facility], [address] [facility], [place] [address] [facility], [address] [facility], [place] [address]. us Azalia Wilson MD LAB PATHOLOGY ORDERABLES Ghada beckie Result PATHOLOGY [facility] Laboratory Receiving [facility] [place] [address] * US Transvaginal (01/09/2025 3:19 PM CDT) Anatomical Region Laterality Modality Pelvis N/A Ultrasound Narrative 01/09/2025 2:16 PM CDT EDUCATION ASSOCIATE ultrasound for AUB Anteverted myomatous uterus Multiple fibroids seen, 5 measured; 2 Anterior subserous 2.6 cm, 2.4cm. Fundal subserous 2.8 cm. 2 Posterior subserous 3.0 cm, 3.3 cm Endometrium appears cystic, measures 13.5 mm Bilat ovaries seen. RO WNL. Possible small LO paraovarian cyst seen No FF us Azalia Wilson MD IMG US PROCEDURES Edited Resu lt - Final * OR ENDOMETRIAL BX W/WO ENDOCERVIX BX W/O DILAT [...] CDT 12/05/2024 8:51 AM CDT Narrative PATHOLOGY [facility] - 12/13/2024 9:11 AM CDT EPIC results best viewed via link to PDF [address] [address] Tele: Estrella Sosa MD - Set Up Operator CYTOLOGY REPORT Note to Patients: This report [...] the details. Patient Name: GABRIELLE HAYWARD Address: [address] [place] [address] Gender: F : 1970 (Age: 54) Service: Location: [facility] #: [id number] Patient Type: [facility] SPECIMEN Taken: 12/04/2024 Reported: 12/13/2024 Physician(s): Azalia Wilson M.D. FINAL DIAGNOSIS: SOURCE OF SPECIMEN - ThinPrep Pap w/ reflex HPV: STATEMENT OF ADEQUACY Source: Cervical/Endocervical - Satisfactory for interpretation - Endocervical /Transformation Zone component present - Case screened using computer assisted imaging technology and manually re- screened by a legal research analyst. GENERAL CATEGORIZATION: - Negative for intraepithelial lesion [...] part or completely in the following laboratories: [facility], [address] [place] [address], [address] [place] [address]. Azalia Wilson MD LAB CYTOLOGY ORDERABLES Final Result PATHOLOGY [facility] Laboratory Receiving [address] [place] [address] * ThinPrep processing (Molecular component) (12/04/2024 1:00 PM CDT) ThinPrep processing (Molecular component) Specimen received for processing. Endocervical 12/04/2024 1:00 PM CDT 12/04/2024 8:44 PM CDT Azalia Wilson MD LAB BODY FLUIDS AND STOOLS OR DERABLES Final Result Performing Organization Address [facility] Co de Phone Number [place] [address] [place] [address] * Reflex thyroglobulin, tumor marker, IA, S (12/04/2024 9:31 AM CDT) Thyroglobulin, Tumor Marker 0.4 < or = 33 ng/mL [place] [facility] Thyroglobulin interp See Footnote CANELO [...] testing methods are immunoenzymatic assays manufactured by [employer] and performed on the Palmap DXI 800. Values obtained from different assay methods or kits may be different and cannot be used interchangeably. The results cannot be interpreted as absolute evidence for the presence or absence of malignant disease. Test Performed by: [facility] [place] [id number] [place] [address] Shoe Repairer Helper: Alejandro Banuelos Ph.D.; CLIA# [id number] Blood 12/04/2024 9:31 AM CDT 12/04/2024 11:30 AM CDT us Davis Oswald MD LAB BLOOD ORDERABLES Final Resu lt Performing Organization Address City/[facility]/ZIP Co de Phone Number [address] [place] [employer] [address] [place] [facility] * Thyroglobulin reflex to MS or IA (12/04/2024 9:31 AM CDT) Anti-thyroglobulin <1.8 <1.8 IUnits/mL [place] [facility] Comment: Thyroglobulin Antibody < 1.8 IU/mL. Thyroglobulin performed by Immunoassay to follow. Test Performed by: [facility] [place] [address] [place] [address] Shoe Repairer Helper: Alejandro Banuelos Ph.D.; CLIA# [id number] Blood 12/04/2024 9:31 AM CDT 12/04/2024 11:30 AM CDT us Davis Oswald MD LAB BLOOD ORDERABLES Final Resu lt Performing Organization Address City/[facility] Co de Phone Number [place]O [address] [place] [employer] [address] [place] [facility] * TSH (12/04/2024 9:27 AM CDT) Thyroid Stimulating Hormone 0.42 0.30 - 4.20 mcIUnit/mL Blood 12/04/2024 9:27 AM CDT 12/04/2024 11:30 AM CDT us Davis Oswald MD LAB BLOOD ORDERABLES Final Resu lt [id number] [place] [address] * (ABNORMAL) T4, free (12/04/2024 9:27 AM CDT) Free T4 1.84(H) 0.90 - 1.70 ng/dL Blood 12/04/2024 9:27 AM CDT 12/04/2024 11:30 AM CDT us Davis Oswald MD LAB BLOOD ORDERABLES Final Resu lt [facility] [address] [facility] Department [place] [address] * Screening Mammogram Bilateral W Tor (11/18/2024 [...] OR DERABLES Final Result Performing Organization Address City/[facility]/ZIP Co de Phone Number [place] [address] [address] Department [place] [address] * Colonoscopy (01/05/2023) Anatomical Region Laterality Modality Other us Historical Provider ENDOSCOPY PROCEDURES Ghada beckie Result from Last 3 Months or Most Recently Relevant to [place] [address] [employer] [place] [address] [address] [place] [address] [employer] [place] [address] [place] [address] [employer] [address] Advance Directives For more information, please contact: [phone] * Full Code (Latest Code Status on File) Date Activated Date Inactivated Comments 03/07/2024 7:22 AM 03/08/2024 5:14 PM * Full Code Date Activated Date Inactivated Comments 03/07/2024 6:34 AM 03/07/2024 7:22 AM * Full Code Date Activated Date Inactivated Comments 11/24/2023 9:05 PM 11/25/2023 5:00 PM Care Teams Service Worker Relationship Specialty Start Date End Date Marla Aldrich MD [address] [place] [address] [address] [place] [address] PCP - General Internal Medicine 09/13/24 Azalia Wilson MD [address] [place] [address] Consulting Physician Obstetrics and Gynecology 08/03/22
--- OUTSIDE RECORDS SUMMARY | 2025-02-27 10:19 | XMS_ITS | Encounter Summary ---
Author Organization [facility] Address [address] [place] [address] Care Team Providers Care County Assessor Name Role Phone Azalia Wilson MD Primary Care Provider [phone] Encounter Details Date Type Department Care Team (Late st Contact Info) Description 05/24/2024 Lab Requisition [facility] - DermPath Lab [address] [place] [id number] Mustapha Kurtz MD [address] [address] Social History Tobacco Use Types Packs/Day Years Used Date Smoking Tobacco: Never Alcohol Use Standard Drinks/Week Comments Yes 0 (1 standard drink = 0.6 oz pur e alcohol) Comments No Sex and Gender Information Value Date Recorded Sex Assigned at Female 12/21/2022 5:22 PM CDT Legal Sex Female 5:49 PM FUEL CELL REPAIRER Gender Identity Female 12/21/2022 5:22 PM CDT [...] Diagnosis Comments DERMATOPATHOLOGY Routine 05/23/2024 3:33 AM FUEL CELL REPAIRER documented in this encounter Results * DERMATOPATHOLOGY (05/23/2024 3:33 AM FUEL CELL REPAIRER) Case Report Dermatopathology Report Case: [id number] Authorizing Provider: Mustapha Kurtz MD Collected: 05/23/2024 03:33 AM Ordering Location: [facility] - Received: 05/24/2024 11:47 AM DermPath Lab Pathologist: Rani Rosa MD Specimen: Skin, left posterior knee 2:22 PM FUEL CELL REPAIRER DERMATOPATHOLOGY LABORATORY Final Diagnosis Specimen A. 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 The specimen consists of a shave biopsy measuring 8x7x1 mm. Jar 0. 2:22 PM FUEL CELL REPAIRER DERMATOPATHOLOGY LABORATORY Microscopic Description Specimen A. SKIN, left posterior knee: There is acanthosis of the epidermis consisting of uniform cells with pale cytoplasm, a diminished granular layer and overlying parakeratosis with neutrophils. 5 2:22 PM [facility] DERMATOPATHOLOGY LABORATORY Disclaimer An external and internal positive and negative controls are appropriate for the histochemical, immunohistochemical and immunofluorescence stain(s) in this case (if any), except where stated explicitly. The performance characteristics of the stain(s) cited in this report were developed and its performance characteristic determined by the Dermatopathology Laboratory at [facility], directed by Dr. Elmo Lloyd. These tests need not be, and therefore are not, approved by the [place] Food and Drug Administration. The tests are used for clinical purposes. Billing Codes Specimen Charges Stain Charges 03011 1 5 2:22 PM [facility] DERMATOPATHOLOGY LABORATORY Embedded Images 2:22 PM [facility] DERMATOPATHOLOGY LABORATORY Pathology/Cytolo gy TISSUE SPECIMEN FROM SKIN / Unknown 05/23/2024 3:33 AM FUEL CELL REPAIRER 05/24/2024 11:47 AM FUEL CELL REPAIRER Mustapha Kurtz MD LAB - PATHOLOGY/CYTOLOGY OR DERABLES Final Result DERMATOPATHOLOGY LABORATORY [facility] - Department of Dermatology [address], [address] [phone] documented in this encounter Visit Diagnoses Not on filedocumented in this encounter Care Teams County Assessor Relationship Specialty Start Date End Date Azalia Wilson MD [address] [facility] [address] [place] [address] PCP - General Obstetrics and Gynecology 12/21/22 documented as of this encounter
--- OUTSIDE RECORDS SUMMARY | 2025-02-27 10:19 | XMS_ITS | Encounter Summary ---
Author Organization [facility] Healthcare Address [address] [place] [address] Care Team Providers Care Cushion Maker Hand Name Role Phone Azalia Wilson MD Unavailable [phone] Marla Aldrich MD Primary Care Provider Encounter Details Date Type Department Care Team (Late st Contact Info) Description 01/13/2025 Results Follow-Up [facility] Medical Group [facility] [address] [place] [address] [place] [phone] Azalia Wilson MD [address] [place] [address] [address] [place] [address] [place] Transvaginal Social History Tobacco Use Types Packs/Day Years Used Date Smoking Tobacco: Former Cigarettes 0.1 4 Smokeless Tobacco: Never Alcohol Use Standard Drinks/Week Comments Yes 3 (1 standard drink = 0.6 oz pur e alcohol) [facility] Utilities Answer Date Recorded In the past 12 months has e [employer], gas, oil, or water [employer] threatened to shut off services in your [...] often do you attend chur ch or confucianist services? Never 03/07/2024 Do you belong to any clubs o r organizations such as mormon groups, unions, fraternal or athletic groups, or [...] time in the past 12 m [facility], were you homeless or living in a snf (including now)? No 03/07/2024 Personal Safety Answer Date Recorded Have you ever been in or are you currently in a harmful physical or emotional relationship or is someone making you feel afraid or unsafe? Denies 03/07/2024 Comments No Sex and Gender Information Value Date Recorded Sex Assigned at Not on file Legal Sex Female 10:42 PM PREPARED FOODS ASSOCIATE Gender Identity Female 04/16/2020 8:10 PM PREPARED FOODS ASSOCIATE Sexual Orientation Straight 04/16/2020 8: 10 PM PREPARED FOODS ASSOCIATE documented as of this encounter Plan of Treatment Scheduled Procedures Name Priority Associated Diagnoses Date/Ti me LAPAROSCOPIC TOTAL HYSTERECTOMY Abnormal uterine bleeding (AUB) Fibroids CYSTOSCOPY Abnormal uterine bleeding (AUB) Fibroids LAPAROSCOPIC SALPINGO-OOPHORECTOMY Abnormal uterine bleeding (AUB) Fibroids documented as of this encounter Visit Diagnoses Not on filedocumented in this encounter Care Teams Cushion Maker Hand Relationship Specialty Start Date End Date Marla Aldrich MD [address] [place] [address] [facility] [address] [place] [address] PCP - General Internal Medicine 09/13/24 Azalia Wilson MD [address] [facility] [address] [place] [address] Consulting Physician Obstetrics and Gynecology 08/03/22 documented as of this encounter
--- OUTSIDE RECORDS SUMMARY | 2025-02-27 10:19 | XMS_ITS | Encounter Summary ---
Author Organization [facility] Healthcare Address [address] [place] [address] Care Team Providers Care Landscaping And Groundskeeping Laborer Name Role Phone Azalia Wilson MD Unavailable Marla Aldrich MD Primary Care Provider [phone] Encounter Details Date Type Department Care Team (Latest Contact Info) Description 01/13/2025 Results Follow-Up [facility] Medical Group [facility] [address] [place] [address] [place] [phone] Azalia Wilson MD [address] [place] [address] [place] [address] Surgical pathology Social History Tobacco Use Types Packs/Day Years Used Date Smoking Tobacco: Former Cigarettes 0.1 4 Smokeless Tobacco: Never Alcohol Use Standard Drinks/Week Comments Yes 3 (1 standard drink = 0.6 oz pur e alcohol) [facility] Utilities Answer Date Recorded In the past 12 months has e [employer], gas, oil, or water [employer] threatened to shut off services in your [...] often do you attend chur ch or jehovah's witness services? Never 03/07/2024 Do you belong to any clubs o r organizations such as jainism groups, unions, fraternal or athletic groups, or [...] any time in the past 12 m [facility], were you homeless or living in a prison (including now)? No 03/07/2024 Personal Safety Answer Date Recorded Have you ever been in or are you currently in a harmful physical or emotional relationship or is someone making you feel afraid or unsafe? Denies 03/07/2024 Comments No Sex and Gender Information Value Date Recorded Sex Assigned at Not on file Legal Sex Female 10:42 PM QUALITY CONTROL SCIENTIST Gender Identity Female 04/16/2020 8:10 PM QUALITY CONTROL SCIENTIST Sexual Orientation Straight 04/16/2020 8: 10 PM QUALITY CONTROL SCIENTIST documented as of this encounter Plan of Treatment Scheduled Procedures Name Priority Associated Diagnoses Date/Ti me LAPAROSCOPIC TOTAL HYSTERECTOMY Abnormal uterine bleeding (AUB) Fibroids CYSTOSCOPY Abnormal uterine bleeding (AUB) Fibroids LAPAROSCOPIC SALPINGO-OOPHORECTOMY Abnormal uterine bleeding (AUB) Fibroids documented as of this encounter Visit Diagnoses Not on filedocumented in this encounter Care Teams Landscaping And Groundskeeping Laborer Relationship Specialty Start Date End Date Marla Aldrich MD [address] [place] [address] [address] [facility] [address] [place] [address] PCP - General Internal Medicine 09/13/24 Azalia Wilson MD [address] [facility] [address] [place] [address] Consulting Physician Obstetrics and Gynecology 08/03/22 documented as of this encounter
--- OUTSIDE RECORDS SUMMARY | 2025-02-27 10:19 | XMS_ITS | Encounter Summary ---
Author Organization [facility] Healthcare Address [address] [place] [address] Care Team Providers Care Steel Fabricating Supervisor Name Role Phone Azalia Wilson MD Unavailable Marla Aldrich MD Primary Care Provider [phone] Reason for Visit * Reason Onset Date Comments Medical Question/Miscellaneous 02/21/2025 Encounter Details Date Type Department Care Team (Late st Contact Info) Description 02/21/2025 Telephone [facility] Medical Group at the [address] [place] [address] Marla Aldrich MD [address] [place] [address] [address] [place] [address] Medical Question/Miscellaneous Social History Tobacco Use Types Packs/Day Years Used Date Smoking Tobacco: Former Cigarettes 0.1 4 Smokeless Tobacco: Never Alcohol Use Standard Drinks/Week Comments Yes 3 (1 standard drink = 0.6 oz pur e alcohol) [facility] Utilities Answer Date Recorded In [...] often do you attend chur ch or christian services? Never 03/07/2024 Do you belong to any clubs o r organizations such as sabianism groups, unions, fraternal or athletic groups, or [...] were you homeless or living in a usp (including now)? No 03/07/2024 Personal Safety Answer Date Recorded Have you ever been in or are you currently in a harmful physical or emotional relationship or is someone making you feel afraid or unsafe? Denies 03/07/2024 Comments No Sex and Gender Information Value Date Recorded Sex Assigned at Not on file Legal Sex Female 10:42 PM ASSISTANT BASKETBALL COACH Gender Identity Female 04/16/2020 8:10 PM ASSISTANT BASKETBALL COACH Sexual Orientation Straight 04/16/2020 8: 10 PM ASSISTANT BASKETBALL COACH documented as of this encounter Miscellaneous Notes * Telephone Encounter - Mayra Jones - 02/21/2025 2:32 PM CDT Medical Question/Miscellaneous Caller???s Concern: [facility] is calling to inform PCP The collection for Calcium, ionized (Order #[id number]) on 01/29/25 has to be cancelled. Collection [...] on filedocumented in this encounter Care Teams Steel Fabricating Supervisor Relationship Specialty Start Date End Date Marla Aldrich MD [address] [place] [address] [address] [facility] [address] [place] [address] PCP - General Internal Medicine 09/13/24 Azalia Wilson MD [address] [place] [address] Consulting Physician Obstetrics and Gynecology 08/03/22 documented as of this encounter
--- OUTSIDE RECORDS SUMMARY | 2025-02-27 10:19 | XMS_ITS | Clinical Summary ---
Author Organization [facility] Address [address] [place] [address] Care Team Providers Care Portfolio Lead Name Role Phone Unavailable Primary Care Provider [...]
--- OUTSIDE RECORDS SUMMARY | 2025-02-27 10:19 | XMS_ITS | Data Portability ---
Author Organization [facility] Address [place], [place] [address] Care Team Providers Care Supervisor Nuclear Medicine Name Role Phone FELIPE RAMOS Primary Care Provider [phone] Assessment No assessment recorded. Plan of Treatment Reminders Order Date Submit Date Provider Last Modified By Organization Details Last Modified Time Details Appointments None recorded. Lab CBC w/ auto diff 2013 014 [facility] (Centralized Electronic Ordering - All Locations), Patient Can Go To The Location Of Their Choice, [id number] 4 07:39:39 urinalysis complete, reflex culture 2013 014 [facility] ([facility]ized [facility] Ordering - All Locations), Patient Can Go To The Location Of Their Choice, [id number] 4 06:18:19 CMP, serum or plasma 2013 014 [facility] ([facility]ized [facility] Ordering - All Locations), Patient Can Go To The Location Of Their Choice, [address] 4 07:39:40 lipid panel, serum 2013 014 [facility] ([facility]ized [facility] Ordering - All Locations), Patient Can Go To The Location Of Their Choice, [address] 4 07:39:40 T4, free, serum 2013 014 [facility] ([facility]ized [facility] Ordering - All Locations), Patient Can Go To The Location Of Their Choice, [address] 4 07:39:41 TSH, serum or plasma 2013 014 [facility] ([facility]ized [facility] Ordering - All Locations), Patient Can Go To The Location Of Their Choice, [address] 4 07:39:41 fecal occult blood, stool 2013 014 [facility] In-House Results, For Internal Use Only, Do Not Delete/merge, [id number] 4 13:27:47 Pap test, thinprep, reflex hr + lr HPV, cervical - CODE: [id number] 2013 014 [facility] ([facility]ized [facility] Ordering - All Locations), Patient Can Go To The Location Of Their Choice, [address] 4 16:36:24 CBC w/diff 2012 013 [email or web address] (Centralized Electronic Ordering - All Locations), Patient Can Go To The Location Of Their Choice, [address] 3 17:04:18 comp metabolic panel w/fasting glucose 2012 013 [email or web address] (Centralized Electronic Ordering - All Locations), Patient Can Go To The Location Of Their Choice, [address] 3 17:04:19 lipid panel w/ calculated LDL 2012 013 [email or web address] ([facility]ized Electronic Ordering - All Locations), Patient Can Go To The Location Of Their Choice, [id number] 3 17:04:19 T4 free 2012 013 [email or web address] ([facility]ized [facility] Ordering - All Locations), Patient Can Go To The Location Of Their Choice, [address] 3 17:04:19 thyroid stimulating hormone (TSH) 2012 013 [email or web address] ([facility]ized [facility] Ordering - All Locations), Patient Can Go To The Location Of Their Choice, [address] 3 17:04:19 urinalysis w/ reflex to culture and sensitivity 2012 013 [facility] ([facility]ized [facility] Ordering - All Locations), Patient Can Go To The Location Of Their Choice, [address] 3 06:08:30 Pap, thin prep & HPV high risk and HPV 16/18 2012 013 [email or web address] ([facility]ized [facility] Ordering - All Locations), Patient Can Go To The Location Of Their Choice, [address] 3 19:52:02 Pap, thin prep & HPV high risk and HPV 16/18 2011 012 [facility] ([facility]ized [facility] Ordering - All Locations), Patient Can Go To The Location Of Their Choice, [address] 3 03:18:54 CBC w/diff 2011 012 [facility] ([facility]ized [facility] Ordering - All Locations), Patient Can Go To The Location Of Their Choice, [id number] 3 03:18:54 comp metabolic panel w/fasting glucose 2011 012 [facility] ([facility] Ordering - All Locations), Patient Can Go To The Location Of Their Choice, [address] 3 03:18:54 lipid panel w/ calculated LDL 2011 012 [facility] ([facility]ized [facility] Ordering - All Locations), Patient Can Go To The Location Of Their Choice, 3 03:18:54 T4 free 2011 012 [facility] ([facility]ized [facility] Ordering - All Locations), Patient Can Go To The Location Of Their Choice, [id number] 3 03:18:54 thyroid stimulating hormone (TSH) 2011 012 [facility] ([facility]ized [facility] Ordering - All Locations), Patient Can Go To The Location Of Their Choice, 3 03:18:54 urinalysis, dipstick 2011 012 [facility] In-House Results, For Internal Use Only, Do Not Delete/merge, [id number] 3 03:18:54 Referral None recorded. Procedures None recorded. Surgeries None recorded. Imaging mammogram, screening 2013 014 Not available 4 13:27:46 mammogram, screening 2012 013 [email or web address] Not available 3 17:04:19 mammogram, screening 2011 012 [facility] Not available 3 03:18:54 Medication Orders Lysteda 650 mg tablet 2011 012 [id number] [address] [facility], [place], [place], [id number], 3 17:33:43 Lysteda 650 mg tablet 2011 012 [email or web address] Not available 3 17:33:43 Patient TargetsNo targets recorded. Patient Instructions Encounter Date Encounter Id Patient Instructions Last Modified By Organization Details Last Modified Time 03/30/2012 advance directives: care instructions [facility] Not available 11/24/2012 03:18:54 03/12/2013 eating healthy foods: care instructions [email or web address] Not available 03/12/2013 20:07:55 learning about dietary guidelines [email or web address] Not available 03/12/2013 20:07:55 advance directives: care instructions [email or web address] Not available 03/12/2013 20:07:55 Excessively heav y menses - lysteada did not help - will come in after holidays for work up - considering endometrial ablation [email or web address] Not available 03/12/2013 17:37:50 03/18/2014 [id number] eating healthy foods: care instructions [email or web address] Not available 03/18/2014 14:24:27 learning about dietary guidelines [email or web address] Not available 03/18/2014 14:24:27 breast self-exam : care instructions [email or web address] Not available 03/18/2014 14:24:27 advance directives: care instructions [email or web address] Not available 03/18/2014 14:24:27 Reason for Referral None Reported. Results Created Date Observation Date Name Description Value Unit Range Abnormal Flag Note LastModifiedBy Organization Detail LastModifiedTime 03/30/20 12 03/30/2012 urina lysis , dipst ick Leukocytes Negati ve Not Available In-House Results For Internal Use Only, Do Not Delete/merge, [id number] 03/30/2012 14:50:17 03/30/20 12 03/30/2012 urina lysis , dipst ick Nitrite negati ve Not Available In-House Results For Internal Use Only, Do Not Delete/merge, [id number] 03/30/2012 14:50:17 03/30/20 12 03/30/2012 urina lysis , dipst ick Urobilinogen .2 Not Available In-Ho use Results For Internal Use Only, Do Not Delete/merge, 03/30/2012 14:50:17 03/30/20 12 03/30/2012 urina lysis , dipst ick Protein Negati ve Not Available In-House Results For Internal Use Only, Do Not Delete/merge, 03/30/2012 14:50:17 03/30/20 12 03/30/2012 urina lysis , dipst ick pH 5.0 Not Available In-House Results For Internal Use Only, Do Not Delete/merge, 03/30/2012 14:50:17 03/30/20 12 03/30/2012 urina lysis , dipst ick Blood Negati ve Not Available In-House Results For Internal Use Only, Do Not Delete/merge, 03/30/2012 14:50:17 03/30/20 12 03/30/2012 urina lysis , dipst ick Specific [place] 1.015 Not Available In-Hubert se Results For Internal Use Only, Do Not Delete/merge, 03/30/2012 14:50:17 03/30/20 12 03/30/2012 urina lysis , dipst ick Ketone Negati ve Not Available In-House Results For Internal Use Only, Do Not Delete/merge, 03/30/2012 14:50:17 03/30/20 12 03/30/2012 urina lysis , dipst ick Bilirubin Negati ve Not Available In-House Results For Internal Use Only, Do Not Delete/merge, 03/30/2012 14:50:17 03/30/20 12 03/30/2012 urina lysis , dipst ick Glucose Negati ve Not Available In-House Results For Internal Use Only, Do Not Delete/merge, 03/30/2012 14:50:17 03/30/20 12 04/03/2012 Pap ig, HPV and rfx HPV 16/18 diagnosis: SPRCS negat danny for intra epith elial lesio n and laurie [place] . cellu lino oneal es assoc iated with karla cramer on are prese nt. Not Available [facility] ([facility]) [address] [place], [address], 04/03/2012 18:11:56 03/30/20 12 04/03/2012 Pap ig, HPV and rfx HPV 16/18 specimen adequacy: [facility] satis facto ry for evalu ation . endoc ervic al and/o r squam ous metap lasti c cells (endo cervi kristina compo nent) are prese nt. Not Available [facility] ([facility]) [address] [place], [address], 04/03/2012 18:11:56 03/30/20 12 04/03/2012 Pap ig, HPV and rfx HPV 16/18 clinician provided ICD9: [facility] V76.2 ; scree didi for malig nant neopl asm of the cervi x Not Available [facility] ([facility]) [address] [place], [address], 04/03/2012 18:11:56 03/30/20 12 04/03/2012 Pap ig, HPV and rfx HPV 16/18 performed by: [facility] vicky jones oneder, cytot echno logis t (ascp ) Not Available [facility] ([facility]) [address] [place], [address], 04/03/2012 18:11:56 03/30/20 12 04/03/2012 Pap ig, HPV and rfx HPV 16/18 . . Not Available [facility] ([facility]) [address] [place], [address], 04/03/2012 18:11:56 03/30/20 12 04/03/2012 Pap ig, HPV and rfx HPV 16/18 note: PAPSMR the Pap smear IS A scree didi test jose j calle to aid in the detec tion of ivan ligna nt and malig nant condi tions of the uteri ne cervi x. IT IS not A diagn ostic proce dure and shoul d not BE used the sole means of detec ting cervi kristina cance r. both false -posi tive and false -nega tive repor ts do occur . . Not Available [facility] ([facility]) [address] [place], [address], 04/03/2012 18:11:56 03/30/20 12 04/03/2012 Pap ig, HPV and rfx HPV 16/18 test methodology: IGLPAP this liqui d based thinp rep(R ) Pap test was scree alva with the use of an image guide eder systrody m. Not Available [facility] ([facility]) [address] [facility], [place], [address], 04/03/2012 18:11:56 03/30/20 12 04/03/2012 Pap ig, HPV and rfx HPV 16/18 HPV, high-risk NEGATI VE negati ve this high- risk HPV test detec ts thirt een high- risk types (16/1 8/31/ 33/35 /39/4 5/51/ 52/56 /58/5 ) witho ut diffe renti ation . . Not Available [facility] ([facility]) [address] [facility], [place], [address], 04/03/2012 18:11:56 03/12/20 13 03/13/2013 urina lysis w/ refle x cultu re specific gravity 1.017 1.005- 1.030 Not Available [facility] ([facility]) [address] [place], [address], 03/14/2013 06:08:30 03/12/20 13 03/13/2013 urina lysis w/ refle x cultu re pH 6.5 5.0-7. 5 Not Available [facility] ([facility]) [address] [place], [address], 03/14/2013 06:08:30 03/12/20 13 03/13/2013 urina lysis w/ refle x cultu re urine-color YELLOW yellow Not Available [facility] ([facility]) [address] [facility], [place], [address], 03/14/2013 06:08:30 03/12/20 13 03/13/2013 urina lysis w/ refle x cultu re appearance CLEAR clear Not Available [facility] ([facility]) [address] [facility], [place], [address], 03/14/2013 06:08:30 03/12/20 13 03/13/2013 urina lysis w/ refle x cultu re WBC esterase 3+ negati ve abnormal Not Available [facility] ([facility]) [address] [facility], [place], [address], 03/14/2013 06:08:30 03/12/20 13 03/13/2013 urina lysis w/ refle x cultu re protein NEGATI VE negati ve/tra ce Not Available [facility] ([facility]) [address] [facility], [place], [address], 03/14/2013 06:08:30 03/12/20 13 03/13/2013 urina lysis w/ refle x cultu re glucose NEGATI VE negati ve Not Available [facility] ([facility]) [address] [place], [address], 03/14/2013 06:08:30 03/12/20 13 03/13/2013 urina lysis w/ refle x cultu re ketones NEGATI VE negati ve Not Available [facility] ([facility]) [address] [place], [address], 03/14/2013 06:08:30 03/12/20 13 03/13/2013 urina lysis w/ refle x cultu re occult blood NEGATI VE negati ve Not Available [facility] ([facility]) [address] [place], [address], 03/14/2013 06:08:30 03/12/20 13 03/13/2013 urina lysis w/ refle x cultu re bilirubin NEGATI VE negati ve Not Available [facility] ([facility]) [address] [facility], [place], [address], 03/14/2013 06:08:30 03/12/20 13 03/13/2013 urina lysis w/ refle x cultu re urobilinogen ,semi-qn 0.2 mg/dL 0.0-1. 9 Not Available [facility] ([facility]) [address] [facility], [place], [address], 03/14/2013 06:08:30 03/12/20 13 03/13/2013 urina lysis w/ refle x cultu re nitrite, urine NEGATI VE negati ve Not Available [facility] ([facility]) [address] [facility], [place], [address], 03/14/2013 06:08:30 03/12/20 13 03/13/2013 urina lysis w/ refle x cultu re microscopic examination SEE BELOW: Not Available [facility] ([facility]) [address] [facility], [place], [address], 03/14/2013 06:08:30 03/12/20 13 03/13/2013 urina lysis w/ refle x cultu re WBC 11-30 /hpf 0 - 5 abnormal Not Available [facility] ([facility]) [address] [facility], [place], [address], 03/14/2013 06:08:30 03/12/20 13 03/13/2013 urina lysis w/ refle x cultu re RBC 0-3 /hpf 0 - 3 Not Available [facility] ([facility]) [address] [place], [address], 03/14/2013 06:08:30 03/12/20 13 03/13/2013 urina lysis w/ refle x cultu re epithelial cells (non renal) 0-10 /hpf 0 - 10 Not Available [facility] ([facility]) [address] [facility], [place], [address], 03/14/2013 06:08:30 03/12/20 13 03/13/2013 urina lysis w/ refle x cultu re mucus threads PRESEN T not estab. Not Available [facility] ([facility]) [address] [facility], [place], [address], 03/14/2013 06:08:30 03/12/20 13 03/13/2013 urina lysis w/ refle x cultu re bacteria MODERA TE none seen/f ew abnormal Not Available [facility] ([facility]) [address] [facility], [place], [address], 03/14/2013 06:08:30 03/12/20 13 03/13/2013 urina lysis w/ refle x cultu re urinalysis reflex FLEX this speci men has refle xed to A urine cultu re. Not Available [facility] ([facility]) [address] [facility], [place], [address], 03/14/2013 06:08:30 03/12/20 13 03/14/2013 urina lysis w/ refle x cultu re urine culture, routine FINAL REPORT Not Available [facility] ([facility]) [address] [facility], [place], [address], 03/14/2013 06:08:30 03/12/20 13 03/14/2013 urina lysis w/ refle x cultu re result 1 MUG mixed uroge nital jj less than 10,00 0 colon ies/m L Not Available [facility] ([facility]) [address] [facility], [place], [address], 03/14/2013 06:08:30 03/12/20 13 03/15/2013 Pap refle x to HPV 16/18 diagnosis: SPRCS negat danny for intra epith elial lesio n and malig karthik . cellu lar oneal es assoc iated with infla mmati on are prese nt. Not Available [facility] ([facility]) [address] [place], [address], 03/18/2013 14:37:01 03/12/20 13 03/15/2013 Pap refle x to HPV 16/18 specimen adequacy: [facility] satis facto ry for evalu ation . endoc ervic al and/o r squam ous metap lasti c cells (endo cervi kristina compo nent) are prese nt. Not Available [facility] ([facility]) [address] [place], [address], 03/18/2013 14:37:01 03/12/20 13 03/15/2013 Pap refle x to HPV 16/18 clinician provided ICD9: [facility] V76.2 ; scree didi for malig nant neopl asm of the cervi x Not Available [facility] ([facility]) [address] [place], [address], 03/18/2013 14:37:01 03/12/20 13 03/15/2013 Pap refle x to HPV 16/18 performed by: [facility] judi guillory (ascp ) Not Available [facility] ([facility]) [address] [place], [address], 03/18/2013 14:37:01 03/12/20 13 03/15/2013 Pap refle x to HPV 16/18 . . Not Available [facility] ([facility]) [address] [place], [address], 03/18/2013 14:37:01 03/12/20 13 03/15/2013 Pap refle x to HPV 16/18 note: PAPSMR the Pap smear IS A scree didi test jose j calle to aid in the detec tion of ivan ligna nt and malig nant condi tions of the uteri ne cervi x. IT IS not A diagn ostic proce dure and shoul d not BE used the sole means of detec ting cervi kristina cance r. both false -posi tive and false -nega tive repor ts do occur . . Not Available [facility] ([facility]) [address] [place], [address], 03/18/2013 14:37:01 03/12/20 13 03/18/2013 Pap refle x to HPV 16/18 HPV, high-risk NEGATI VE negati ve this high- risk HPV test detec ts thirt een high- risk types (16/1 8/31/ 33/35 /39/4 5/51/ 52/56 /58/5 ) witho ut diffe renti ation . . Not Available [facility] ([facility]) [address] [place], [address], 03/18/2013 14:37:01 03/18/20 14 03/19/2014 urina lysis compl ete, refle x cultu re specific gravity 1.021 1.005- 1.030 Not Available [facility] ([facility]) [address] [place], [address], 03/20/2014 06:18:19 03/18/20 14 03/19/2014 urina lysis compl ete, refle x cultu re pH 6.0 5.0-7. 5 Not Available [facility] ([facility]) [address] [place], [address], 03/20/2014 06:18:19 03/18/20 14 03/19/2014 urina lysis compl ete, refle x cultu re urine-color YELLOW yellow Not Available [facility] ([facility]) [address] [place], [address], 03/20/2014 06:18:19 03/18/20 14 03/19/2014 urina lysis compl ete, refle x cultu re appearance CLEAR clear Not Available [facility] ([facility]) [address] [place], [address], 03/20/2014 06:18:19 03/18/20 14 03/19/2014 urina lysis compl ete, refle x cultu re WBC esterase NEGATI VE negati ve Not Available [facility] ([facility]) [address] [place], [address], 03/20/2014 06:18:19 03/18/20 14 03/19/2014 urina lysis compl ete, refle x cultu re protein NEGATI VE negati ve/tra ce Not Available [facility] ([facility]) [address] [place], [address], 03/20/2014 06:18:19 03/18/20 14 03/19/2014 urina lysis compl ete, refle x cultu re glucose NEGATI VE negati ve Not Available [facility] ([facility]) [address] [place], [address], 03/20/2014 06:18:19 03/18/20 14 03/19/2014 urina lysis compl ete, refle x cultu re ketones NEGATI VE negati ve Not Available [facility] ([facility]) [address] [place], [address], 03/20/2014 06:18:19 03/18/20 14 03/19/2014 urina lysis compl ete, refle x cultu re occult blood NEGATI VE negati ve Not Available [facility] ([facility]) [address] [place], [address], 03/20/2014 06:18:19 03/18/20 14 03/19/2014 urina lysis compl ete, refle x cultu re bilirubin NEGATI VE negati ve Not Available [facility] ([facility]) [address] [place], [address], 03/20/2014 06:18:19 03/18/20 14 03/19/2014 urina lysis compl ete, refle x cultu re urobilinogen ,semi-qn 0.2 mg/dL 0.0-1. 9 Not Available [facility] ([facility]) [address] [place], [address], 03/20/2014 06:18:19 03/18/20 14 03/19/2014 urina lysis compl ete, refle x cultu re nitrite, urine NEGATI VE negati ve Not Available [facility] ([facility]) [address] [facility], [place], [address], 03/20/2014 06:18:19 03/18/20 14 03/19/2014 urina lysis compl ete, refle x cultu re microscopic examination MICRON MICRO SCOPI C FOLLO WS IF INDIC ATED. Not Available [facility] ([facility]) [address] [facility], [place], [address], 03/20/2014 06:18:19 03/18/20 14 03/19/2014 urina lysis compl ete, refle x cultu re microscopic examination SEE BELOW: MICRO SCOPI C WAS INDIC ATED AND WAS PERFO RMED. Not Available [facility] ([facility]) [address] [place], [address], 03/20/2014 06:18:19 03/18/20 14 03/19/2014 urina lysis compl ete, refle x cultu re WBC 0-5 /hpf 0 - 5 Not Available [facility] ([facility]) [address] [place], [address], 03/20/2014 06:18:19 03/18/20 14 03/19/2014 urina lysis compl ete, refle x cultu re RBC 0-2 /hpf 0 - 2 Not Available [facility] ([facility]) [address] [place], [address], 03/20/2014 06:18:19 03/18/20 14 03/19/2014 urina lysis compl ete, refle x cultu re epithelial cells (non renal) >10 /hpf 0 - 10 abnormal Not Available [facility] ([facility]) [address] [facility], [place], [address], 03/20/2014 06:18:19 03/18/20 14 03/19/2014 urina lysis compl ete, refle x cultu re mucus threads PRESEN T not estab. Not Available [facility] ([facility]) [address] [facility], [place], [address], 03/20/2014 06:18:19 03/18/20 14 03/19/2014 urina lysis compl ete, refle x cultu re bacteria MANY none seen/f ew abnormal Not Available [facility] ([facility]) [address] [facility], [place], [address], 03/20/2014 06:18:19 03/18/20 14 03/19/2014 urina lysis compl ete, refle x cultu re urinalysis reflex FLEX THIS SPECI MEN HAS REFLE XED TO A URINE CULTU RE. Not Available [facility] ([facility]) [address] [facility], [place], [address], 03/20/2014 06:18:19 03/18/20 14 03/20/2014 urina lysis compl ete, refle x cultu re urine culture, routine FINAL REPORT Not Available [facility] ([facility]) [address] [facility], [place], [address], 03/20/2014 06:18:19 03/18/20 14 03/20/2014 urina lysis compl ete, refle x cultu re result 1 NO GROWTH Not Available [facility] ([facility]) [address] [facility], [place], [address], 03/20/2014 06:18:19 03/18/20 14 03/20/2014 pap, IG + refle x HPV (16+1 8+45) diagnosis: [facility] NEGAT DANNY FOR INTRA EPITH ELIAL LESIO N AND MALIG KARTHIK . Not Available [facility] ([facility]) [address] [facility], [place], [address], 03/22/2014 16:36:24 03/18/20 14 03/20/2014 pap, IG + refle x HPV (16+1 8+45) specimen adequacy: [facility] SATIS FACTO RY FOR EVALU ATION . ENDOC ERVIC AL AND/O R SQUAM OUS METAP LASTI C CELLS (ENDO CERVI KIRSTINA COMPO NENT) ARE PRESE NT. Not Available [facility] ([facility]) [address] [facility], [place], [address], 03/22/2014 16:36:24 03/18/20 14 03/20/2014 pap, IG + refle x HPV (16+1 8+45) clinician provided ICD9: [facility] V76.2 ; JUANE DIDI FOR LAURIE LEES NEOPL ASM OF THE CERVI X Not Available [facility] ([facility]) [address] [facility], [place], [address], 03/22/2014 16:36:24 03/18/20 14 03/20/2014 pap, IG + refle x HPV (16+1 8+45) performed by: [facility] FLAKO CRYSTAL , CYTOT ECHNO CECILLE T (ASCP ) Not Available [facility] ([facility]) [address] [place], [address], 03/22/2014 16:36:24 03/18/20 14 03/20/2014 pap, IG + refle x HPV (16+1 8+45) . . Not Available [facility] ([facility]) [address] [place], [address], 03/22/2014 16:36:24 03/18/20 14 03/20/2014 pap, IG + refle x HPV (16+1 8+45) note: PAPSMR THE PAP SMEAR IS A SCREE DIDI TEST JOSE J CALLE TO AID IN THE DETEC TION OF IVAN LIGNA NT AND MALIG NANT CONDI TIONS OF THE UTERI NE CERVI X. IT IS NOT A DIAGN OSTIC PROCE DURE AND SHOUL D NOT BE USED THE SOLE MEANS OF DETEC TING CERVI KRISTINA CANCE R. BOTH FALSE -POSI TIVE AND FALSE -NEGA TIVE REPOR TS DO OCCUR . . Not Available [facility] ([facility]) [address] [place], [address], 03/22/2014 16:36:24 03/18/20 14 03/20/2014 pap, IG + refle x HPV (16+1 8+45) test methodology: IGLPAP THIS LIQUI D BASED THINP REP(R ) PAP TEST WAS CHRISTY CALLE WITH THE USE OF AN IMAGE GUIDE Eder Dixon. Not Available [facility] ([facility]) [address] [place], [address], 03/22/2014 16:36:24 03/18/20 14 03/22/2014 pap, IG + refle x HPV (16+1 8+45) HPV other HR types NEGATI VE negati ve Not Available [facility] ([facility]) [address] [place], [address], 03/22/2014 16:36:24 03/18/20 14 03/22/2014 pap, IG + refle x HPV (16+1 8+45) HPV 16 NEGATI VE negati ve Not Available [facility] ([facility]) [address] [place], [address], 03/22/2014 16:36:24 03/18/20 14 03/22/2014 pap, IG + refle x HPV (16+1 8+45) HPV 18 NEGATI VE negati ve THIS TEST DETEC TS FOURT EEN HIGH- RISK HPV TYPES : HPV16 , HPV18 AND TWELV E OTHER HIGH- RISK TYPES (31, 33, 35, 39, 45, 51, 52, 56, 58, 59, 66, 68) WITHO UT DIFFE RENTI ATION . Not Available [facility] ([facility]) [address] [place], [address], 03/22/2014 16:36:24 03/21/20 14 03/22/2014 CBC w/ auto diff WBC 6.2 x10e3 /uL 3.4-10 .8 Not Available [facility] ([facility]) [address] [facility], [place], [address], 03/22/2014 07:39:39 03/21/20 14 03/22/2014 CBC w/ auto diff RBC 4.72 x10e6 /uL 3.77-5 .28 Not Available [facility] ([facility]) [address] [facility], [place], [address], 03/22/2014 07:39:39 03/21/20 14 03/22/2014 CBC w/ auto diff hemoglobin 12.5 g/dL 11.1-1 5.9 Not Available [facility] ([facility]) [address] [facility], [place], [address], 03/22/2014 07:39:39 03/21/20 14 03/22/2014 CBC w/ auto diff hematocrit 38.3 % 34.0-4 6.6 Not Available [facility] ([facility]) [address] [facility], [place], [address], 03/22/2014 07:39:39 03/21/20 14 03/22/2014 CBC w/ auto diff MCV 81 fL 79-97 Not Available [facility] ([facility]) [address] [place], [address], 03/22/2014 07:39:39 03/21/20 14 03/22/2014 CBC w/ auto diff MCH 26.5 pg 26.6-3 3.0 low Not Available [facility] ([facility]) [address] [place], [address], 03/22/2014 07:39:39 03/21/20 14 03/22/2014 CBC w/ auto diff MCHC 32.6 g/dL 31.5-3 5.7 Not Available [facility] ([facility]) [address] [facility], [place], [address], 03/22/2014 07:39:39 03/21/20 14 03/22/2014 CBC w/ auto diff RDW 13.9 % 12.3-1 5.4 Not Available [facility] ([facility]) [address] [facility], [place], [address], 03/22/2014 07:39:39 03/21/20 14 03/22/2014 CBC w/ auto diff platelets 243 x10e3 /uL 150-37 9 Not Available [facility] ([facility]) [address] [facility], [place], [address], 03/22/2014 07:39:39 03/21/20 14 03/22/2014 CBC w/ auto diff neutrophils 63 % Not Available [facility] ([facility]) [address] [place], [address], 03/22/2014 07:39:39 03/21/20 14 03/22/2014 CBC w/ auto diff lymphs 25 % Not Available [facility] ([facility]) [address] [place], [address], 03/22/2014 07:39:39 03/21/20 14 03/22/2014 CBC w/ auto diff monocytes 9 % Not Available [facility] ([facility]) [address] [place], [address], 03/22/2014 07:39:39 03/21/20 14 03/22/2014 CBC w/ auto diff eos 2 % Not Available [facility] ([facility]) [address] [place], [address], 03/22/2014 07:39:39 03/21/20 14 03/22/2014 CBC w/ auto diff basos 1 % Not Available [facility] ([facility]) [address] [place], [address], 03/22/2014 07:39:39 03/21/20 14 03/22/2014 CBC w/ auto diff neutrophils (absolute) 3.9 x10e3 /uL 1.4-7. 0 Not Available [facility] ([facility]) [address] [place], [address], 03/22/2014 07:39:39 03/21/20 14 03/22/2014 CBC w/ auto diff lymphs (absolute) 1.6 x10e3 /uL 0.7-3. 1 Not Available [facility] ([facility]) [address] [place], [address], 03/22/2014 07:39:39 03/21/20 14 03/22/2014 CBC w/ auto diff monocytes(ab solute) 0.5 x10e3 /uL 0.1-0. 9 Not Available [facility] ([facility]) [address] [place], [address], 03/22/2014 07:39:39 03/21/20 14 03/22/2014 CBC w/ auto diff eos (absolute) 0.1 x10e3 /uL 0.0-0. 4 Not Available [facility] ([facility]) [address] [place] [address], [address], 03/22/2014 07:39:39 03/21/20 14 03/22/2014 CBC w/ auto diff baso (absolute) 0.0 x10e3 /uL 0.0-0. 2 Not Available [facility] ([facility]) [address] [place] [address], [address], 03/22/2014 07:39:39 03/21/20 14 03/22/2014 CBC w/ auto diff immature granulocytes 0 % Not Available [facility] ([facility]) [address] [place] [address], [address], 03/22/2014 07:39:39 03/21/20 14 03/22/2014 CBC w/ auto diff immature grans (abs) 0.0 x10e3 /uL 0.0-0. 1 Not Available [facility] ([facility]) [address] [place], [address], 03/22/2014 07:39:39 03/21/20 14 03/22/2014 CMP, serum or plasm a glucose, serum 83 mg/dL 65-99 Not Available [facility] ([facility]) [address] [place], [address], 03/22/2014 07:39:40 03/21/20 14 03/22/2014 CMP, serum or plasm a BUN 22 mg/dL 6-24 Not Available [facility] ([facility]) [address] [place], [address], 03/22/2014 07:39:40 03/21/20 14 03/22/2014 CMP, serum or plasm a creatinine, serum 0.71 mg/dL 0.57-1 .00 Not Available [facility] ([facility]) [address] [place], [address], 03/22/2014 07:39:40 03/21/20 14 03/22/2014 CMP, serum or plasm a eGFR if nonafricn AM 104 mL/mi n/1.7 3 >59 Not Available [facility] ([facility]) [address] [place], [address], 03/22/2014 07:39:40 03/21/20 14 03/22/2014 CMP, serum or plasm a eGFR if africn AM 120 mL/mi n/1.7 3 >59 Not Available [facility] ([facility]) [address] [place], [address], 03/22/2014 07:39:40 03/21/20 14 03/22/2014 CMP, serum or plasm a BUN/creatini ne ratio 31 9-23 high Not Available [facility] ([facility]) [address] [place], [address], 03/22/2014 07:39:40 03/21/20 14 03/22/2014 CMP, serum or plasm a sodium, serum 140 mmol/ L 134-14 4 Not Available [facility] ([facility]) [address] [place], [address], 03/22/2014 07:39:40 03/21/20 14 03/22/2014 CMP, serum or plasm a potassium, serum 4.5 mmol/ L 3.5-5. 2 Not Available [facility] ([facility]) [address] [place], [address], 03/22/2014 07:39:40 03/21/20 14 03/22/2014 CMP, serum or plasm a chloride, serum 102 mmol/ L 97-108 Not Available [facility] ([facility]) [address] [place], [address], 03/22/2014 07:39:40 03/21/20 14 03/22/2014 CMP, serum or plasm a carbon dioxide, total 20 mmol/ L 18-29 Not Available [facility] ([facility]) [address] [place], [address], 03/22/2014 07:39:40 03/21/20 14 03/22/2014 CMP, serum or plasm a calcium, serum 8.7 mg/dL 8.7-10 .2 Not Available [facility] ([facility]) [address] [place], [address], 03/22/2014 07:39:40 03/21/20 14 03/22/2014 CMP, serum or plasm a protein, total, serum 7.0 g/dL 6.0-8. 5 Not Available [facility] ([facility]) [address] [place] [address], [address], 03/22/2014 07:39:40 03/21/20 14 03/22/2014 CMP, serum or plasm a albumin, serum 4.0 g/dL 3.5-5. 5 Not Available [facility] ([facility]) [address] [facility] [place], [address], 03/22/2014 07:39:40 03/21/20 14 03/22/2014 CMP, serum or plasm a globulin, total 3.0 g/dL 1.5-4. 5 Not Available [facility] ([facility]) [address] [facility] [place], [address], 03/22/2014 07:39:40 03/21/20 14 03/22/2014 CMP, serum or plasm a A/G ratio 1.3 1.1-2. 5 Not Available [facility] ([facility]) [address] [facility] [place], [address], 03/22/2014 07:39:40 03/21/20 14 03/22/2014 CMP, serum or plasm a bilirubin, total 0.2 mg/dL 0.0-1. 2 Not Available [facility] ([facility]) [address] [facility] [place], [address], 03/22/2014 07:39:40 03/21/20 14 03/22/2014 CMP, serum or plasm a alkaline phosphatase, S 86 IU/L 39-117 Not Available [facility] ([facility]) [address] [place], [address], 03/22/2014 07:39:40 03/21/20 14 03/22/2014 CMP, serum or plasm a AST (SGOT) 15 IU/L 0-40 Not Available [facility] ([facility]) [address] [facility] [place], [address], 03/22/2014 07:39:40 03/21/20 14 03/22/2014 CMP, serum or plasm a ALT (SGPT) 11 IU/L 0-32 Not Available [facility] ([facility]) [address] [place], [address], 03/22/2014 07:39:40 03/21/20 14 03/22/2014 lipid panel , serum cholesterol, total 162 mg/dL 100-19 9 Not Available [facility] ([facility]) [address] [place], [address], 03/22/2014 07:39:40 03/21/20 14 03/22/2014 lipid panel , serum triglyceride s 77 mg/dL 0-149 Not Available [facility] ([facility]) [address] [place], [address], 03/22/2014 07:39:40 03/21/20 14 03/22/2014 lipid panel , serum HDL cholesterol 55 mg/dL >39 ACCOR DING TO ATP-I II GUIDE LINES , HDL-C >59 MG/DL IS CONSI DERED A NEGAT DANNY RISK FACTO R FOR CHD. Not Available [facility] ([facility]) [address] [facility], [place], [address], 03/22/2014 07:39:40 03/21/20 14 03/22/2014 lipid panel , serum VLDL cholesterol kristina 15 mg/dL 5-40 Not Available [facility] ([facility]) [address] [place], [address], 03/22/2014 07:39:40 03/21/20 14 03/22/2014 lipid panel , serum LDL cholesterol calc 92 mg/dL 0-99 Not Available [facility] ([facility]) [address] [place], [address], 03/22/2014 07:39:40 03/21/20 14 03/22/2014 T4, free, serum T4,free(dire ct) 1.08 NG/dL 0.82-1 .77 Not Available [facility] ([facility]) [address] [place], [address], 03/22/2014 07:39:41 03/21/20 14 03/22/2014 TSH, serum or plasm a TSH 2.080 uIU/m L 0.450- 4.500 Not Available [facility] ([facility]) [address] [facility], [place], [address], 03/22/2014 07:39:41 03/09/20 12 03/06/2012 imagi ng/di polios tic resul t No observ ation record ed. CAROLYNE [facility] [address], [place], [address], 11/24/2012 03:18:42 03/25/20 13 03/22/2013 mammo gram, scree didi No observ ation record ed. [email or web address] [facility] [address], [place], [address], 04/16/2013 13:41:26 03/24/20 14 03/20/2014 mammo gram, scree didi No observ ation record ed. [facility] [address], [place], [address], 03/24/2014 15:56:57 03/18/20 16 03/16/2016 MAMMO , diagn ostic , digit al, bilat eral No observ ation record ed. Not Available 2016 14:25:04 Result Notes None recorded. Problems Name Problem SNOMED Code Status Onset Date Resolution Date Notes Provider Name and Address Organization Details Recorded Time Specialized medical examination Active Elisha Ma MD [address] [facility],[address], [place], [address] , [facility] - [facility] 4 13:27:46 Increased frequency of urination 731069639 Active Gloria Wb null, [employer] - [facility] 3 17:37:49 Menorrhagia 240966436 Active Gloria Wb null, [place] [facility] 3 17:36:44 Headache 42851550 Active Not Available [facility] 3 03:03:07 Recurrent major depressive episodes 971175501 Active Not Available [facility] 3 03:03:07 Human papilloma virus infection 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 Procedures Surgical History Date Name Laterality Status Provider Name and Address Organization Details Recorded Time 06/01/19 13 Ectopic completed Prema MoralesBlanca [facility] 03/12/2013 16:55:17 05/01/19 01 Hysteroscopy / Polyp, Fibroid, Other completed Gabrielle Henry CT [facility] 03/30/2012 14:24:12 05/01/18 98 Laparotomy (Other Abdominal Surg): Describe completed Gloria Perez CT [facility] 03/30/2012 15:06:39 06/01/18 89 Cervix: LEEP / Laser / Cryo completed Premagiacomo [facility] 03/12/2013 16:55:17 Imaging Results None recorded. Procedure Notes None recorded. Medical Equipment None Reported. Allergies No known drug allergies Medications Name Sig Start Date Stop Date Status Note LastModified by Organization Details LastModified Time azithromycin 250 mg tablet active Not Available Not Availabl e Not Available benzonatate 100 mg capsule active Not Available Not Availab le Not Available ibuprofen 600 mg PRN FOR HEADACHE active Not Available Not Available No t Available Lysteda 650 mg tablet Take 2 tablets 3 times a day by oral route. 2011 active Not Available Not Available Not Avai lable Vitals Date Recorded Body height Body weight Body mass index (BMI) Systolic And Diastolic Provider Name and Address Organization Details Last Updated DateTime 03/12/2013 172.72 cm 56780.673 582 g 25.6 kg/m2 116/80 mm[Hg] Prema AdrianocarmellaZay stone [facility] 03/12/2013 16:53:19 Date Recorded Body weight Body mass index (BMI) Body height Systolic And Diastolic Provider Name and Address Organization Details Last Updated DateTime 03/18/2014 41016.189 652 g 27.3 kg/m2 172.72 cm 110/70 mm[Hg] Machelle Savage [facility] 03/18/2014 12:13:37 Date Recorded Body height Body weight Body mass index (BMI) Systolic And Diastolic Provider Name and Address Organization Details Last Updated DateTime 03/30/2012 172.72 cm 73998.409 72 g 23.7 kg/m2 114/72 mm[Hg] Gabrielle Carl CT [facility] 03/30/2012 14:19:47 Social History Question Answer Notes LastModified by Organizat ion Details LastModified Time Tobacco Smoking Status Never Smoker Gabrielle Henry [facility] 03/30/2012 14:35:11 Do You Have An Advance Directive? No [email or web address] Information not available 03/30/2012 Is Blood Transfusion Acceptable In An Emergency? Yes Information not available 03/30/2012 Who Is Your Employer? [employer] [email or web address] Information not available 03/30/2012 Are There Any Guns Present In Your Home? No Information not available 03/30/2012 Live Alone Or With Others? With Others [email or web address] Information not available 03/30/2012 How Much Sleep? Eight Hours Most Nights [email or web address] Information not available 03/30/2012 Alcohol Intake Frequency Occasional [email or web address] Information not available 03/30/2012 Caffeine Intake Frequency Daily [email or web address] Information not available 03/30/2012 Caffeine How Many Cups Per Day? / What Type? 24 Oz Dt Pep [email or web address] Information not available 03/30/2012 Regular Exercise? Most Weeks But Inconsistent Information not available 03/12/2013 Illicit Drug Use Frequency (prescription Or Street) Never [email or web address] Information not available 03/30/2012 Current Student? No [email or web address] Information not available 03/30/2012 Diet? Mostly Healthy Informatio n not available 03/30/2012 Calcuim 1,000 - 1,500mg Daily (diet / Suplements)? No [email or web address] Information not available 03/30/2012 Diet High In Fiber? Yes Information not available 03/30/2012 Avoid Second Hand Smoke Exposure? Yes [email or web address] Information not available 03/30/2012 Martial Status: [email or web address] Informati on not available 03/30/2012 Monthly Self Breast Exams? Yes [email or web address] Information not available 03/30/2012 Regular Tooth Brushing, Flossing, And Dental Visits? Yes [email or web address] Information not available 03/30/2012 Education Level: College Graduate Information not available 03/30/2012 Previous Attempts To Decrease Alcohol Consumption? Rare To No Alcohol Use [email or web address] Information not available 03/30/2012 Do You Use Your Seat Belt Or Car Seat Routinely? Yes Information not available 03/30/2012 Are You Sexually Active? Yes Information not available 03/12/2013 Do You Have Smoke And Carbon Monoxide Detectors In Your Home? Yes Information not available 03/30/2012 How Much Tobacco Do You Smoke? No [email or web address] Information not available 03/30/2012 Do You Use Sunscreen Routinely? Yes [email or web address] Information not available 03/30/2012 Sex: Unknown Functional Status Question Answer Note LastModified by [email or web address] ion Details LastModified Time Are you currently employed? 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 Family History Relationship Description Onset Age of this Age Resolved Age Notes LastModified by Organization Details LastModified Time Mother Disorder of cardiovascul ar system HTN (previ ously record ed as High Blood Pressu re, Other Heart /Vascu lar /DVT/P E) Not available 03/18/2014 12:58:07 Paternal Grandfather Disorder of cardiovascul ar system 43 DC (previ ously record ed as Heart Attack (DC) Ischem ic heart diseas e) Not available 03/18/2014 12:58:07 Paternal Grandmother Problem 83 natura l causes Not available 03/18/2014 12:58:07 Maternal Aunt Malignant neoplasm of gastrointest inal tract 55 Colon CA (previ ously record ed as Colon / Other GI Cancer s) Not available 03/18/2014 12:58:07 Maternal Grandfather Disorder of nervous system dememt ia (previ ously record ed as Neurol ogic Dx; Alzhei rad's, Eugenia sons, Seizur es) Not available 03/18/2014 12:58:07 Maternal Grandfather Cerebrovascu lar accident 73 previo usly record ed as Stroke Not available 03/18/2014 12:58:07 Maternal Grandmother Problem 84 natura l causes Not available 03/18/2014 12:58:07 Father Glaucoma Not available 03/18/2014 12:58:07 Father Disorder of cardiovascul ar system HTN (previ ously record ed as High Blood Pressu re, Other Heart /Vascu lar /DVT/P E) Not available 03/18/2014 12:58:07 Father Malignant neoplasm of prostate previo usly record ed as Prosta te Cancer Not available 03/18/2014 12:58:07 Medical History Condition Response High Blood Pressure N Liver Disease - Other (not cancer) N Nervous System Disorders - Other N Depression Y Blood Disorder (Excessive) Von Willebran d's or Other N Allergies - seasonal / environmental Y Other Musculoskeletal Disorder N Genital Warts - Personal History N Dysplasia, Vaginal - Personal History N Elevated cholesterol, triglycerides N Anxiety Disorder N Breast Problem Fibrocystic Y Human Papilloma Virus HPV) Y Arthritis N Urinary Tract Infection (UTI), Personal Hx N Infertility N Kidney stones N Immune Disorder N Inherited Anemia / Sickle Cell, Thalasem ia N HIV / AIDS N Stroke - Unspecified Residual Late Effec t N Rheumatoid Arthritis N Fibromyalgia N Polycystic Kidney Disease N History of blood transfusion N Other skin disorder (not cancer or eczem a) N Diabetes, Type 1 N Dysplasia, Anal - Personal History N Colon Polyps, Personal Hx N Liver Cirrhosis N Metabolic Syndrome X N Fibroids Uterine N Gallbladder Disease N Migraines N Herpes, Genital N Psychiatric Illness - Other N Osteoporesis N Heart Disease - Other N Constipation N Blind or visual loss (Legally blind) N Alzeiheimer's Disease N Osteopenia N Heart Disease, cornary artery (including DC) N Anemia, unspecified N Crohn's Disease (Regional Enteritis) N Asthma N Other breast problem (not cancer) N Chronic Obstructive Airway Disease (COPD ) N Diabetes, Type 2 N Dementia - Not Alzeiheimer's N Mitral Valve Prolapse N Hypothyroidism - Low thyroid N Gastrointertinal Disease - Other N Breast Cancer N Chronic Renal Failure N Urinary and/or Stool Incontinence N Glaucoma N Defects or Inherited Disease N Eye, Ear, Nose, Mouth, Throat - Other N Headache, Not Migraine Y Irritable Bowel Syndrome (IBS) N Dysplasia, Vulvar - Personal History N Varicose veins N PMS/PMDD N Heartburn, Reflux, GERD N Other Blood Disorder N Lupus /Other Connective Tissue Disorder N Embolism Pulmonary/Other - Personal Hist ory N Polycystic Ovaries (PCOS) N Chlamydia - Personal History N Genetic Dx Carrier Status N Elevated BP without Dx of Hypertension N Vitamin D Deficiency N Respiratory Disease - Other (Not COPD /a sthma) N Endometriosis N Hyperthyroidism - Elevated thyroid N End Stage Renal Disease (Dialysis) N Malignant Hyperthermia due to Anesthesia N Kidney/Urinary Tract Disease - Other N Gonorrhea - Personal History N Transient Ischemic Attack (TIA) History N Parkinson's Disease N Impaired Vision (Corrected glasses/conta cts/surgery) N Chronic Interstitial Cystitis (Bladder P ain) N Other Cancer - List Primary Site N Syphilis - Personal History N Deaf or Hearing Loss N Genetic susceptibilty to cancer N Other Endocrine Disorder N Dysplasia, Cervical - Personal History N DVT (Blood clot) - Personal History N Uterine and/or Vaginal Prolapse N Eczema N History of Anaphylactic Reaction N Ulcerative colitis N Epilepsy N Vulvar Dystrophy / Lichen Sclerosis N Peptic ulcer N Other Gynecology Problem Y Gynecological History Statement/Question Response Are you sexually active? Yes Sexually Transmitted Disease Risk? Longt erm monogamous relationship Heavy Date of LMP 02/21/2013 02/21/2013 5 Age at Menarche 11 Age at First Child 28 Current control method / List vase ctomy Any sexual concerns or problems? N Planning in next year? N Attempting ? N Sexual orientation Heterosexual N Number of lifetime sexual partners More than 5 Y Y Obstetrics History GPAL:G 4 P 2 0 2 2 Type Value Full Term 2 Spontaneous 1 Living 2 Ectopics 1 Total 4 Immunizations Vaccine Type Date Status Note Provider Nam e and Address Organization Details Recorded Time influenza, P5A9-1080 2 completed ESTHER Mortensen - [facility] 03/30/2012 14:32:35 Influenza, split virus, trivalent, preservative 3 completed ESTHER Cervantes - [facility] 03/18/2014 12:13:36 Past Encounters Encounter ID Performer Location Encounter Start Date Encounter Closed Date Diagnosis/Indication Diagnosis SNOMED-CT Code Diagnosis ICD10 Code Diagnosis IMO Codes Diagnosis Note [id number] Gloria Wood MD [facility] [address] [facility] ,[facility] [address] [place] [address] 03/30/2012 14:00:24 03/30/2012 15:41:46 [id number] Gloria Wood MD [facility] [address] [facility] ,[facility] [address] [place] [address] 03/12/2013 16:29:53 03/12/2013 17:44:31 Specialized medical examination [id number] Screening for malignant neoplasm of cervix 644605898 Increased frequency of urination 203389009 Screening for malignant neoplasm of breast 070024772 [id number] Elisha Ma MD [facility] [address] [facility] ,[facility] [address] [place] [address] 03/18/2014 11:45:41 03/18/2014 13:31:31 Specialized medical examination 86090479 Screening for malignant neoplasm of cervix 730206023 Screening for malignant neoplasm of breast 255978716 Family his tory of cancer of colon 782216992 Health Concerns Section Related Observation LastModified by Organization Detai ls LastModified Time None Recorded Concern Status LastModified by Organization Details LastModified Time None Recorded Advance Directives Directive N: Payers Insurance Date Sequence Insurance Name Policy Number Policy Loja Covered Member ID Loja Member ID Guarantor Name 03/17/2014 1 [facility] [id number] Gabrielle Pichardo Holderer [id number] Gabrielle Pichardo Holderer OBGyn Episode Ob Episode Information Episode Created Date Number of Fetuses Patient Bloodtype Patient rh Status Prepregnancy Weight lbs Domestic Partner Domestic Partner Phone Father Name Mamma Logist Status 03/28/20 12 1 CLOSED Fetus Data First Name Last Name Admitted to NICU Weight (g) Sex Living Outcome Pediatric Complications Fetus ID Race Codes Race Delivery Type [id number] Vaginal Willis Calculation Initial Willis Date Initial Exam Date Initial Exam Provider Initial Ultrasound Date Last Menstrual Period Date Ultra Sound Weeks Gestation 0 Eighteen To Twenty Week Willis Update Ultra Sound Date Fundal Height At Umbil Quickening Date Ultra Sound Latest Weeks Gestation Final Willis Confirmed By Final Willis Confirmed Date Final Willis Date Ultra Sound Latest Days Gestation 0 0 Menstrual History Last Menstrual Date Menses Monthly On Bcp Conception Prior Menses Frequency Hcg Plus Date Menarche Onset Age Delivery Information Delivery Date Delivery Type Labor Anesthesia Weeks Gestation Incision Type Labor Labor Length Hrs Delivered By Post Complications Tubal Sterilization Discharge Date Comments 4 37 Barrera-bed r est Discharge Information Feeding Method Contraceptive Method Maternal HG B and HCT Levels Ob Episode Information Episode Created Date Number of Fetuses Patient Bloodtype Patient rh Status Prepregnancy Weight lbs Domestic Partner Domestic Partner Phone Father Name Mamma Logist Status 03/28/20 12 1 CLOSED Fetus Data First Name Last Name Admitted to NICU Weight (g) Sex Living Outcome Pediatric Complications Fetus ID Race Codes Race Delivery Type [phone] Vaginal Willis Calculation Initial Willis Date Initial Exam Date Initial Exam Provider Initial Ultrasound Date Last Menstrual Period Date Ultra Sound Weeks Gestation 0 Eighteen To Twenty Week Willis Update Ultra Sound Date Fundal Height At Umbil Quickening Date Ultra Sound Latest Weeks Gestation Final Willis Confirmed By Final Willis Confirmed Date Final Willis Date Ultra Sound Latest Days Gestation 0 0 Menstrual History Last Menstrual Date Menses Monthly On Bcp Conception Prior Menses Frequency Hcg Plus Date Menarche Onset Age Delivery Information Delivery Date Delivery Type Labor Anesthesia Weeks Gestation Incision Type Labor Labor Length Hrs Delivered By Post Complications Tubal Sterilization Discharge Date Comments 9 39 Thomas-i n competent cervix, bedrest, Cerlage Discharge Information Feeding Method Contraceptive Method Maternal HG B and HCT Levels Ob Episode Information Episode Created Date Number of Fetuses Patient Bloodtype Patient rh Status Prepregnancy Weight lbs Domestic Partner Domestic Partner Phone Father Name Mamma Logist Status 03/28/20 12 1 CLOSED Fetus Data First Name Last Name Admitted to NICU Weight (g) Sex Living Outcome Pediatric Complications Fetus ID Race Codes Race Delivery Type Ectopic [id number] Willis Calculation Initial Willis Date Initial Exam Date Initial Exam Provider Initial Ultrasound Date Last Menstrual Period Date Ultra Sound Weeks Gestation 0 Eighteen To Twenty Week Willis Update Ultra Sound Date Fundal Height At Umbil Quickening Date Ultra Sound Latest Weeks Gestation Final Willis Confirmed By Final Willis Confirmed Date Final Willis Date Ultra Sound Latest Days Gestation 0 0 Menstrual History Last Menstrual Date Menses Monthly On Bcp Conception Prior Menses Frequency Hcg Plus Date Menarche Onset Age Delivery Information Delivery Date Delivery Type Labor Anesthesia Weeks Gestation Incision Type Labor Labor Length Hrs Delivered By Post Complications Tubal Sterilization Discharge Date Comments 8 RT tube Discharge Information Feeding Method Contraceptive Method Maternal HG B and HCT Levels Ob Episode Information Episode Created Date Number of Fetuses Patient Bloodtype Patient rh Status Prepregnancy Weight lbs Domestic Partner Domestic Partner Phone Father Name Mamma Logist Status 03/28/20 12 1 CLOSED Fetus Data First Name Last Name Admitted to NICU Weight (g) Sex Living Outcome Pediatric Complications Fetus ID Race Codes Race Delivery Type , Spontane ous [id number] Willis Calculation Initial Willis Date Initial Exam Date Initial Exam Provider Initial Ultrasound Date Last Menstrual Period Date Ultra Sound Weeks Gestation 0 Eighteen To Twenty Week Willis Update Ultra Sound Date Fundal Height At Umbil Quickening Date Ultra Sound Latest Weeks Gestation Final Willis Confirmed By Final Willis Confirmed Date Final Willis Date Ultra Sound Latest Days Gestation 0 0 Menstrual History Last Menstrual Date Menses Monthly On Bcp Conception Prior Menses Frequency Hcg Plus Date Menarche Onset Age Delivery Information Delivery Date Delivery Type Labor Anesthesia Weeks Gestation Incision Type Labor Labor Length Hrs Delivered By Post Complications Tubal Sterilization Discharge Date Comments 1 Discharge Information Feeding Method Contraceptive Method Maternal HG B and HCT Levels
--- OUTSIDE RECORDS SUMMARY | 2025-02-27 10:19 | XMS_ITS | Encounter Summary ---
Author Organization [facility] Healthcare Address [address] [place] [address] Care Team Providers Care Laundry Washer Name Role Phone Azalia Wilson MD Unavailable [phone] Marla Aldrich MD Primary Care Provider Encounter Details Date Type Department Care Team (Late st Contact Info) Description 02/22/2025 Results Follow-Up [facility] Medical Group at the [address] [place] [address] Marla Aldrich MD [address] [place] [address] [address] [place], [place] [id number] Basic metabolic panel, Vitamin D 25 hydroxy, eGFR Social History Tobacco Use Types Packs/Day Years Used Date Smoking Tobacco: Former Cigarettes 0.1 4 Smokeless Tobacco: Never Alcohol Use Standard Drinks/Week Comments Yes 3 (1 standard drink = 0.6 oz pur e alcohol) [facility] Utilities Answer Date Recorded In the past [address] [facility] [employer], gas, oil, or water [employer] threatened to shut off services in your [...] often do you attend chur ch or catholic services? Never 03/07/2024 Do you belong to any clubs o r organizations such as baptism groups, unions, fraternal or athletic groups, or [...] on file Legal Sex Female 10:42 PM MOTION PICTURE PHOTOGRAPHER Gender Identity Female 04/16/2020 8:10 PM MOTION PICTURE PHOTOGRAPHER Sexual Orientation Straight 04/16/2020 8: 10 PM MOTION PICTURE PHOTOGRAPHER documented as of this encounter Miscellaneous Notes * Result Encounter Note - Marla Aldrich MD - 02/22/2025 9:13 AM CDT Your results are normal! documented in this encounter Plan of Treatment Scheduled Procedures Name Priority Associated Diagnoses Date/Ti vt LAPAROSCOPIC TOTAL HYSTERECTOMY Abnormal uterine bleeding (AUB) Fibroids CYSTOSCOPY Abnormal uterine bleeding (AUB) Fibroids LAPAROSCOPIC SALPINGO-OOPHORECTOMY Abnormal uterine bleeding (AUB) Fibroids documented as of this encounter Visit Diagnoses Not on filedocumented in this encounter Care Teams Laundry Washer Relationship Specialty Start Date End Date Marla Aldrich MD [facility] [address] Gomez [address] [address] PCP - General Internal Medicine 09/13/24 Azalia Wilson MD [address] [facility] [address] [place] [address] Consulting Physician Obstetrics and Gynecology 08/03/22 documented as of this encounter
--- OUTSIDE RECORDS SUMMARY | 2025-02-27 10:19 | XMS_ITS | Encounter Summary ---
Author Organization [facility] Healthcare Address [address] [place] [address] Care Team Providers Care Director Of Informatics Name Role Phone Azalia Wilson MD Unavailable Marla Aldrich MD Primary Care Provider Reason for Visit * Reason Onset Date Comments Medical Question/Miscellaneous 02/19/2025 Encounter Details Date Type Department Care Team (Late st Contact Info) Description 02/19/2025 Telephone [facility] Medical Group at the [address] [place] [address] Marla Aldrich MD [address] [place] [address] [address] [place] [address] Medical Question/Miscellaneous Social History Tobacco Use Types Packs/Day Years Used Date Smoking Tobacco: Former Cigarettes 0.1 4 Smokeless Tobacco: Never Alcohol Use Standard Drinks/Week Comments Yes 3 (1 standard drink = 0.6 oz pur e alcohol) [facility] Utilities Answer Date Recorded In the past [...] any clubs o r organizations such as orthodox groups, unions, fraternal or athletic groups, [...] any time in the past 12 m [facility], were you homeless or living in a senior care (including now)? No 03/07/2024 Personal Safety Answer Date Recorded Have you ever been in or are you currently in a harmful physical or emotional relationship or is someone making you feel afraid or unsafe? Denies 03/07/2024 Comments No Sex and Gender Information Value Date Recorded Sex Assigned at Not on file Legal Sex Female 10:42 PM HEAD BANQUET WAITRESS Gender Identity Female 04/16/2020 8:10 PM HEAD BANQUET WAITRESS Sexual Orientation Straight 04/16/2020 8: 10 PM HEAD BANQUET WAITRESS documented as of this encounter Miscellaneous Notes * Telephone Encounter - Columba Cope - 02/19/2025 12:40 PM CDT Medical Question/Miscellaneous Caller???s Concern: Patient is calling asking to confirm that her standing lab orders for [facility] in [place] are ordered through [facility] as she stated this is how her Endo stated it needsto be ordered. COMPUTER EDUCATION TEACHER let patient know that the standing orders are there but is asking for confirmation that [facility] in [place] through [facility] will be able to pull [...] in this encounter Care Teams Director Of Informatics Relationship Specialty Start Date End Date Marla Aldrich MD [facility] [address] Gomez [facility] [address] [place] [address] PCP - General Internal Medicine 09/13/24 Azalia Wilson MD [address] [facility] [address] [place] [address] Consulting Physician Obstetrics and Gynecology 08/03/22 documented as of this encounter
--- OUTSIDE RECORDS SUMMARY | 2025-02-27 10:19 | XMS_ITS ---
Author Organization [place] [id number] [facility] Address [address] [place] [address] Care Team Providers Care Breaker Operator Name Role Phone Azalia Wilson MD Unavailable [phone] Marla Aldrich MD Primary Care Provider [phone] Active Problems Problem Noted Date Diagnosed Date [...] recommended that she touch base with her general labor to make sure that her endo would [...] 04/08/2024 Assessment & Plan (04/08/2024 9:24 AM SENIOR PRODUCT ENGINEER): -Recommended: Healthy diet. Avoiding junk food/fast [...] 04/08/2024 Assessment & Plan (04/08/2024 9:29 AM SENIOR PRODUCT ENGINEER): Still having physical pain post her thyroid surgery. Still going to physical therapy. Will obtain x-ray of her shoulder as she is still having pain into her shoulder Cervicalgia 04/08/2024 Assessment & Plan (06/10/2024 10:23 AM SENIOR PRODUCT ENGINEER): Most of her neck symptoms are indeterminate and likely functional. She has globus sensation. A sensation of strangulation. Right neck pain and tightness. Voice seems normal. She reassures me that postop vocal cord check was done and found to be normal. She also scheduled for EGD She continues neck PT Assessment & Plan (04/08/2024 9:28 AM SENIOR PRODUCT ENGINEER): Obtain x-ray of neck today to rule out degenerative disc disease causing the pain she is having in her scapula radiating into her shoulder and over into her right side of her neck. Submandibular gland tenderness 04/08/2024 Assessment & Plan (04/08/2024 9:31 AM SENIOR PRODUCT ENGINEER): Tender over right submandibular gland, although I do not appreciate any swelling or enlargement. Consider ultrasound, however, she is going to the [facility] in a couple of weeks and will receive an ultrasound of her neck there. We will see what they do and then re-consider an ultrasound of that gland if needed. Generalized headaches 01/24/2024 Assessment & Plan (04/08/2024 9:26 AM SENIOR PRODUCT ENGINEER): Most consistent with tension headaches. I [...] 40 Assessment & Plan (04/08/2024 9:25 AM SENIOR PRODUCT ENGINEER): Stable. She does see Cardiology. Continue amlodipine 2.5 mg and telmisartan 40 mg Assessment & Plan (03/19/2024 2:14 PM SENIOR PRODUCT ENGINEER): Managed appropriately by cardiology Assessment & [...] Shira Devine NP Authorized by: Devine, Shira, CERAMIC SAW TENDER Comparison: not compared with previous ECG Previous [...] dose monitoring, she will wait for her general labor to respond to her recent query, I advised that I would not take over her levothyroxine doses at this time as a ultimately should be managed by specialist given her history. I advised that she could make an appointment to see her general labor at an earlier time than the currently [...] dose Assessment & Plan (06/10/2024 10:07 AM SENIOR PRODUCT ENGINEER): Continue current dose, TSH 0.8 recently switched to Tirosent < one month ago TSH goal lower normal [ consider suppression pending final Tg and US results] Assessment & Plan (03/19/2024 2:15 PM SENIOR PRODUCT ENGINEER): Continue current levothyroxine dose. TSH goal lower normal Assessment & Plan (12/04/2023 10:56 AM CDT): Continue current levothyroxine dose. Will check thyroid function test and adjust levothyroxine dose accordingly. TSH goal lower normal Postprocedural hypoparathyroidism 12/04/2023 Assessment & Plan (12/09/2024 11:49 AM CDT): Recovered Assessment & Plan (03/19/2024 2:15 PM SENIOR PRODUCT ENGINEER): Recovered Assessment & Plan (12/04/2023 11:00 AM CDT): Likely mild and transient Will recheck PTH and calcium today to advise on dose and further monitoring when she returns to see surgery in 10 days Papillary carcinoma of thyroid 11/23/2023 Assessment & Plan (12/09/2024 11:47 AM CDT): Stage 1 T1N0Mx papillary thyroid cancer s/p TT 10/2023 US at [facility] 03/2024 US today remain stable with no concerning lesions reported Biochemical markers remain stable and at goal Plan repeat images in 1 year Assessment & Plan (06/10/2024 10:11 AM SENIOR PRODUCT ENGINEER): Stage 1 T1N0Mx papillary thyroid cancer s/p TT 10/2023 Pending final US today Pending tumor markers US at [facility] 03/2024 Discussed with patient plan [...] then Assessment & Plan (03/19/2024 2:16 PM SENIOR PRODUCT ENGINEER): Stage 1 T1N0Mx papillary thyroid cancer [...] in 6 months Discussed short term and combine inspector surveillance Status post endometrial ablation 08/23/2022 Overview (08/23/2022): Amenorrhea since ablation in 2021, now with cyclical pain. Assessment & Plan (04/08/2024 9:26 AM SENIOR PRODUCT ENGINEER): Will check FSH and LH to [...] (07/26/2022): Added automatically from request for surgery [id number] Menometrorrhagia 08/24/2021 08/23/2022 Overview (08/24/2021): Added automatically from request for surgery [id number] Abnormal uterine bleeding du e to endometrial polyp 05/26/2020 08/23/2022 Overview (05/26/2020): Added automatically from request for surgery [id number] Fatigue 07/08/2024
--- OUTSIDE RECORDS SUMMARY | 2025-02-27 10:19 | XMS_ITS | Clinical Summary ---
Author Organization [facility] [employer] Address [address] [place] [address] Care Team Providers Care Financial Planning Assistant Name Role Phone Azalia Wilson MD Primary Care Provider [phone] Source Comments [facility] [employer],non-owned Affiliates and Associated Physician Practices is amultiple site organization consisting of ambulatory clinics and hospital sitesin [place], [place], [place] and [place]. This disclosure is being madepursuant to the Care Everywhere program and may not contain all information available regarding this patient. Last updated 18.[facility] [employer] Allergies No known active allergies Medications * [...] PM CDT Legal Sex Female 5:49 PM CENTER MGR Gender Identity Female 12/21/2022 5:22 PM CDT [...] entire procedure. Procedure Code(s): --- Professional --- 86179, Colonoscopy, flexible; with biopsy, single or multiple Diagnosis Code(s): --- Professional --- Z12.11, Encounter for screening for malignant neoplasm of colon K64.8, Other hemorrhoids D12.3, Benign neoplasm of transverse colon (hepatic flexure or splenic flexure) K57.30, Diverticulosis of large intestine without perforation or abscess without bleeding CPT copyright 2021 [employer]. All rights reserved. The codes documented in this report are preliminary and upon line maintainer section review may be revised to meet current compliance requirements. Prashant Hitchcock, 01/05/2023 10:25:53 AM Note Initiated On: 01/05/2023 9:51 AM Number of Addenda: [address] [address] [facility] 01/05/2023 9:51 AM CDT us Prashant Hitchcock MD GI PROCEDURE ORDERABLE S Edited Result - Final [facility] [employer] from Last 3 Months or Most Recently Relevant to [place] [address] [employer]THE[employer] Care Teams Financial Planning Assistant Relationship Specialty Start Date End Date Azalia Wilson MD [address] [facility] [address] [place] [address] PCP - General Obstetrics and Gynecology 12/21/22
--- OUTSIDE RECORDS SUMMARY | 2025-02-27 10:19 | XMS_ITS | Encounter Summary ---
Author Organization [facility] Healthcare Address [address] [place] [address] Care Team Providers Care Operator Coating Furnace Name Role Phone Azalia Wilson MD Unavailable [phone] Marla Aldrich MD Primary Care Provider Encounter Details Date Type Department Care Team (Late st Contact Info) Description 01/29/[address] [facility] Medical Group at the [address] [place] [address] Marla Aldrich MD [address] [place] [address] [address] [place] [address] Social History Tobacco Use Types Packs/Day Years Used Date Smoking Tobacco: Former Cigarettes 0.1 4 Smokeless Tobacco: Never Alcohol Use Standard Drinks/Week Comments Yes 3 (1 standard drink = 0.6 oz pur e alcohol) [facility] Utilities Answer Date Recorded In the past 12 months has e [employer], gas, oil, or water [employer] threatened to shut off services in your [...] often do you attend chur ch or church services? Never 03/07/2024 Do you belong to any clubs o r organizations such as tenriism groups, unions, fraternal or athletic groups, or [...] in the past 12 m [facility], were you homeless or living in a care home (including now)? No 03/07/2024 Personal Safety Answer Date Recorded Have you ever been in or are you currently in a harmful physical or emotional relationship or is someone making you feel afraid or unsafe? Denies 03/07/2024 Comments No Sex and Gender Information Value Date Recorded Sex Assigned at Not on file Legal Sex Female 10:42 PM STAMPING DIE MAKER Gender Identity Female 04/16/2020 8:10 PM STAMPING DIE MAKER Sexual Orientation Straight 04/16/2020 8: 10 PM STAMPING DIE MAKER documented as of this encounter Plan of Treatment Scheduled Procedures Name Priority Associated Diagnoses Date/Ti me LAPAROSCOPIC TOTAL HYSTERECTOMY Abnormal uterine bleeding (AUB) Fibroids CYSTOSCOPY Abnormal uterine bleeding (AUB) Fibroids LAPAROSCOPIC SALPINGO-OOPHORECTOMY Abnormal uterine bleeding (AUB) Fibroids documented as of this encounter Visit Diagnoses Not on filedocumented in this encounter Care Teams Operator Coating Furnace Relationship Specialty Start Date End Date Marla Aldrich MD [address] [place] [address] DR [address] [facility] [address] [place] [address] PCP - General Internal Medicine 09/13/24 Azalia Wilson MD [address] [facility] [address] [place] [address] Consulting Physician Obstetrics and Gynecology 08/03/22 documented as of this encounter
--- NOTE | 2025-02-27 10:23 | ED.LOWEXIN ---
HPI - Extremity Injury (Lower) General Chief Complaint: Extremity Injury, Lower Stated Complaint: LLE swelling and pain Time Seen by Provider: 02/27/25 09:25 Source: patient Mode of arrival: ambulatory Limitations: no limitations History of Present Illness HPI Narrative: 54-year-old with a history of hypothyroidism here with a complaint of left leg and calf pain for past 4-5 days. She denies any trauma. Concerned about possible DVT. Onset (ago): day(s) (5) Place: home Severity: moderate Relieving factors: nothing Exacerbating factors: nothing Related Data Home Medications ?Medication ?Instructions ?Recorded ?Confirmed ?Last Taken ?Type levothyroxine 125 mcg tablet mcg 12/17/23 Unknown History Allergies Allergy/AdvReac Type Severity Reaction Status Date / Time No Known Allergies Allergy Verified 02/27/25 09:13 Review of Systems Review of Systems: All systems reviewed & are unremarkable except as noted in HPI and below Constitutional: Constitutional: Reports no additional constitutional complaints Eyes: Eyes: Reports no additional eye complaints ENT: Reports system reviewed and no additional complaints, except as documented Cardiovascular: Cardiovascular: Reports no additional cardiovascular complaints Respiratory: Respiratory: Reports no additional respiratory complaints Gastrointestinal: Gastrointestinal: Reports no additional gastrointestinal complaints Musculoskeletal: Musculoskeletal: Reports as per HPI Exam Narrative: GENERAL: Well-appearing, well-nourished, and in no acute distress. HEAD: Normocephalic, atraumatic. EYES: PERRLA and EOMI. ENT: Nares clear, no rhinorrhea or epistaxis. Mucous membranes moist. NECK: Supple. CHEST: Clear to auscultation. No respiratory distress. HEART: Regular rate and rhythm. No murmur heard. Normal peripheral pulses. EXTREMITIES: Normal range of motion. No edema. left knee ,no effusion SKIN: Warm, dry, no rash. NEURO: No focal deficits. Alert and oriented x3. PSYCH: Normal mood and affect. Course Course Emergency Course: Notified her about her US findings , advised her to take Ibuprofen or Tylenol for pain . Vital Signs Vital signs: Vital Signs Temperature 37.1 C 02/27/25 09:27 Pulse Rate 66 02/27/25 09:27 Respiratory Rate 16 02/27/25 09:27 Blood Pressure 157/88 H 02/27/25 09:27 Pulse Oximetry 100 02/27/25 09:27 Temperature 37.1 C 02/27/25 09:27 Pulse Rate 66 02/27/25 09:27 Respiratory Rate 16 02/27/25 09:27 Blood Pressure 157/88 H 02/27/25 09:27 Pulse Oximetry 100 02/27/25 09:27 Discharge Plan Discharge Clinical Impression: Leg pain, left Patient Disposition: Home Condition: Stable Instructions: Leg Pain (ED) Patient Language: Telugu Prescriptions: No Action levothyroxine 125 mcg tablet ibuprofen 800 mg tablet 800 mg PO TID PRN (Reason: pain) 7 Days Qty: 21 0RF acetaminophen 500 mg tablet 1,000 mg PO TID PRN (Reason: harry) 7 Days Qty: 42 0RF methocarbamol 750 mg tablet 1,500 mg PO TID Qty: 35 0RF Follow-up/Referrals: PHYSICIAN NOT ON STAFF,NONSTAFF [Primary Care Provider] Tae Ritter MD [Physician, Family Practice] Time of Disposition: 10:27
[2025-02-27 10:41] VITALS: BP 129/74; PULSE 68; RESP 16; TEMP 36.8; O2SAT 100
== END 2025-02-27 10:42 | disposition home or self-care (01) ==
PROVIDERS: Emergency Provider Family Medicine
DX: M79.662 Pain in left lower leg (principal); M79.89 Other specified soft tissue disorders; E03.9 Hypothyroidism, unspecified
CPT/HCPCS: 93971; 99284